=== PATIENT | male | born 1960 | race Caucasian/White ===

== ENCOUNTER 2019-11-03 17:15 | Inpatient (IN) | payer MEDICARE, MEDICAID, SELFPAY ==
--- NOTE | 2019-11-03 19:39 | CRLCT ---
Indication: Fall, syncope, history of CVA Comparison: None available. Technique: Multiple sequential axial images from the foramen magnum to the vertex were obtained without IV contrast. Findings: No evidence of mass effect, midline shift, or extra-axial fluid collection. No evidence of space-occupying lesion or intracranial hemorrhage. Intracranial vascular calcifications are seen. No evidence of an acute cortical-based area of infarction. Focal 10 mm area of ill-defined hypodensity in the posterior right frontal lobe near the central sulcus best seen on image 43, series 4 appears subacute to chronic without any mass effect. The ventricles and sulci are mildly prominent for patient age. Basal cisterns are patent. Visualized portions of the orbits, paranasal sinuses, and mastoid air cells are unremarkable. Debris within bilateral external artery canals presumably represents cerumen. Impression: No acute intracranial process. Please note that all CT scans at this facility use dose modulation, iterative reconstruction, and/or weight-based dosing when appropriate to reduce radiation dose to as low as reasonably achievable. Dictated by Osvaldo Jewell MD @ Nov 03 2019 7:25PM (Electronically Signed)
--- NOTE | 2019-11-03 19:58 | EDM.PDOC ---
ED HPI GENERAL MEDICAL PROBLEM - General Chief Complaint: Syncope Stated Complaint: MEDICAL [facility] Time Seen by Provider: 11/03/19 18:16 Source of Information: Reports: Patient, Old Records, RN Notes Reviewed History Limitations: Reports: No Limitations - History of Present Illness INITIAL COMMENTS - FREE TEXT/NARRATIVE: 59-year-old gentleman presents emergency department today via EMS services for increasing weakness. He has a known history of CVA last occurred September 23 was evaluated at [facility] the stroke was initially acute subacute unknown well time he also has extensive history of alcohol abuse and dependence. As well as poor healthcare compliance as well as medical compliance with medications. He states after he was discharged from the hospital he was at home he thought he was doing okay and then over the last 24 hours have progressively gotten weak he states he had a fall this morning feels like his legs just gave out he was able to get to the chair he said he had a couple of years thought about it for a while and then called the ambulance service in the afternoon instead of going to [facility] he requested to be transferred to [place]. - Related Data Allergies Allergy/AdvReac Type Severity Reaction Status Date / Time propofol Allergy Hypotension Verified 12/28/15 04:50 Home Meds: Home Meds . [Unable to Verify Home Med List] 11/03/19 [History] Past Medical History HEENT History: Reports: Impaired Vision Cardiovascular History: Reports: Afib (Paroxysmal), High Cholesterol, Hypertension Gastrointestinal History: Reports: Other (See Below) Other Gastrointestinal History: feeding tube in place placed after CVA with difficulty swallowing however no longer uses it Musculoskeletal History: Reports: Back Pain, Chronic, Fracture Neurological History: Reports: CVA (Right vertebral artery), Other (See Below) (Obstructive sleep apnea) Psychiatric History: Reports: Addiction, Anxiety, Depression Endocrine/Metabolic History: Reports: Obesity/BMI 30+ - Infectious Disease History Infectious Disease History: Reports: Chicken Pox - Past Surgical History Neurological Surgical History: Reports: Laminectomy, Spinal Fusion Social & Family History - Tobacco Use Smoking Status *Q: Current Every Day Smoker Years of Tobacco use: 50 Packs/Tins Daily: 1 - Caffeine Use Caffeine Use: Reports: Coffee - Alcohol Use Date of Last Drink: 11/03/19 Time of Last Drink: 10:00 - Recreational Drug Use Recreational Drug Use: No ED ROS GENERAL - Review of Systems Review Of Systems: See Below Constitutional: Reports: Weakness, Fatigue. Denies: Fever, Chills HEENT: Reports: No Symptoms Respiratory: Reports: No Symptoms Cardiovascular: Reports: No Symptoms GI/Abdominal: Reports: No Symptoms : Reports: No Symptoms Musculoskeletal: Reports: No Symptoms Skin: Reports: Wound (PEG tube in place) Neurological: Reports: Difficulty Walking, Weakness ED EXAM, NEURO - Physical Exam Exam: See Below Exam Limited By: No Limitations General Appearance: Alert, WD/WN, No Apparent Distress Eye Exam: Bilateral Eye: Normal Inspection, PERRL Throat/Mouth: No Airway Compromise Head Exam: Atraumatic, Normocephalic Neck: Normal Inspection, Supple, Non-Tender, Full Range of Motion Respiratory/Chest: No Respiratory Distress, Lungs Clear, Normal Breath Sounds, No Accessory Muscle Use, Chest Non-Tender Cardiovascular: Regular Rate, Rhythm, No Murmur GI/Abdominal: Soft, Non-Tender Neurological: Alert, No Motor/Sensory Deficits Course - Vital Signs Last Recorded V/S: Last Vital Signs Temp 96.5 F L 11/03/19 18:00 Pulse 78 11/03/19 20:26 Resp 16 11/03/19 18:00 BP 166/87 H 11/03/19 20:26 Pulse Ox 97 11/03/19 18:00 - Orders/Labs/Meds Orders: Active Orders 24 hr Category Date Time Status EKG Documentation Completion [RC] ASDIRECTED Care 11/03/19 18:53 Active UA W/MICROSCOPIC [URIN] Urgent Lab 11/03/19 20:49 Ordered EKG 12 Lead [EK] Stat Ther 11/03/19 18:53 Ordered Labs: Laboratory Tests 11/03/19 11/03/19 11/03/19 Range/Units 18:28 18:28 18:28 WBC 6.5 (4.5-11.0) K/uL RBC 5.17 (4.30-5.90) M/uL Hgb 16.4 H (12.0-15.0) g/dL Hct 48.9 (40.0-54.0) % MCV 95 (80-98) fL MCH 32 H (27-31) pg MCHC 34 (32-36) % Plt Count 99 L (150-400) K/uL Neut % (Auto) 49 (36-66) % Lymph % (Auto) 35 (24-44) % Christian % (Auto) 12 H (2-6) % Eos % (Auto) 3 (2-4) % Baso % (Auto) 1 (0-1) % PT (9.5-12.0) sec INR (0.80-1.20) Sodium 143 (140-148) mmol/L Potassium 3.9 (3.6-5.2) mmol/L Chloride 101 (100-108) mmol/L Carbon Dioxide 28 (21-32) mmol/L Anion Gap 14.5 H (5.0-14.0) mmol/L BUN 7 (7-18) mg/dL Creatinine 0.8 (0.8-1.3) mg/dL Est Cr Clr Drug Dosing 93.81 mL/min Estimated GFR (MDRD) > 60 (>60) Glucose 70 L (74-106) mg/dL Calcium 8.5 (8.5-10.1) mg/dL Troponin I (0.000-0.056) ng/mL Ethyl Alcohol 177 mg/dL 11/03/19 11/03/19 Range/Units 18:56 18:58 WBC (4.5-11.0) K/uL RBC (4.30-5.90) M/uL Hgb (12.0-15.0) g/dL Hct (40.0-54.0) % MCV (80-98) fL MCH (27-31) pg MCHC (32-36) % Plt Count (150-400) K/uL Neut % (Auto) (36-66) % Lymph % (Auto) (24-44) % Christian % (Auto) (2-6) % Eos % (Auto) (2-4) % Baso % (Auto) (0-1) % PT 10.3 (9.5-12.0) sec INR 0.94 (0.80-1.20) Sodium (140-148) mmol/L Potassium (3.6-5.2) mmol/L Chloride (100-108) mmol/L Carbon Dioxide (21-32) mmol/L Anion Gap (5.0-14.0) mmol/L BUN (7-18) mg/dL Creatinine (0.8-1.3) mg/dL Est Cr Clr Drug Dosing mL/min Estimated GFR (MDRD) (>60) Glucose (74-106) mg/dL Calcium (8.5-10.1) mg/dL Troponin I 0.024 (0.000-0.056) ng/mL Ethyl Alcohol mg/dL Departure - Departure Time of Disposition: 20:53 Disposition: Admitted As Inpatient 64 Condition: Poor Clinical Impression: Alcohol abuse, Weakness - Discharge Information Referrals: PCP,None [Primary Care Provider] - Forms: ED Department Discharge Sepsis Event Note (ED) - Evaluation Sepsis Screening Result: No Definite Risk - Focused Exam Vital Signs: Vital Signs Temp Pulse Resp BP Pulse Ox 11/03/19 20:26 78 166/87 H 11/03/19 20:04 76 151/77 H 11/03/19 18:37 84 161/87 H 11/03/19 18:00 96.5 F L 59 L 16 148/79 H 97 11/03/19 17:44 59 L 148/79 H 11/03/19 17:17 96.5 F L 76 16 153/78 H 97 - My Orders Last 24 Hours: My Active Orders 11/03/19 18:53 EKG Documentation Completion [RC] ASDIRECTED EKG 12 Lead [EK] Stat 11/03/19 20:49 UA W/MICROSCOPIC [URIN] Urgent - Assessment/Plan Last 24 Hours: My Active Orders 11/03/19 18:53 EKG Documentation Completion [RC] ASDIRECTED EKG 12 Lead [EK] Stat 11/03/19 20:49 UA W/MICROSCOPIC [URIN] Urgent Plan: Assessment Acuity = acute Site and laterality = weakness Etiology = unknown probably related to debilitated condition recent CVA and extensive alcohol abuse and dependence Manifestations = none Location of injury = Home Lab values = CBC unremarkable BMP unremarkable alcohol elevated 177 EKG demonstrates right bundle branch block initial troponin normal range 0.424 Plan Call discussed case with Dr. Mercer hospitalist on-call at [phone] he kindly agreed to come evaluate the patient in the emergency department for admission This note was dictated using nprogress voice recognition software please call with any questions on syntax or grammar.
[2019-11-03] MEDS ORDERED: Sodium Chloride 0.9% 10 ML Syringe FLUSH PRN (21:38)
--- NOTE | 2019-11-03 21:54 | PCM.HP.2 ---
H&P History of Present Illness - General Date of Service: 11/03/19 Admit Problem/Dx: Admission Diagnosis/Problem Admission Diagnosis/Problem Weakness Source of Information: Patient, Provider History Limitations: Reports: No Limitations - History of Present Illness Initial Comments - Free Text/Narative: CC: I'm so weak HPI: Don presents to the emergency room today with weakness. He reports that his legs gave out on him this morning and he fell down. He had to crawl over to the chair and spent the day in the chair. He had several beers throughout the day. He reports that he has had urgent stool that he has been unable to control and it has been liquid. This just started today. He reports that he has been having some urinary urgency and it has been passing in small quantities on its own. Appetite has been okay. He has been well enough to continue to smoke and drink alcohol. He has a mild cough with some sputum but does not feel short of breath. No chest pain or abdominal pain. No nausea. No fevers. He does report that he had a stroke just over a month ago but had been doing okay and had been independent at home. Things started suddenly today and he had been feeling well as of yesterday. No obvious sick contacts or travel. Work-up in the emergency room has been fairly unremarkable. The patient is quite weak. He is continuing to have loose and incontinent stools. No exciting labs other than a moderate CRP elevation. C. difficile and chest x-ray are pending. Repeat head CT unremarkable. He will be admitted for observation and expedited work-up. - Related Data Allergies/Adverse Reactions: Allergies Allergy/AdvReac Type Severity Reaction Status Date / Time propofol Allergy Hypotension Verified 12/28/15 04:50 Home Medications: Home Meds . [Unable to Verify Home Med List] 11/03/19 [History] Past Medical History HEENT History: Reports: Impaired Vision Cardiovascular History: Reports: Afib (Paroxysmal), High Cholesterol, Hypertension Gastrointestinal History: Reports: Other (See Below) Other Gastrointestinal History: feeding tube in place placed after CVA with difficulty swallowing however no longer uses it Musculoskeletal History: Reports: Back Pain, Chronic, Fracture Neurological History: Reports: CVA (Right vertebral artery), Other (See Below) (Obstructive sleep apnea) Psychiatric History: Reports: Addiction, Anxiety, Depression Endocrine/Metabolic History: Reports: Obesity/BMI 30+ - Infectious Disease History Infectious Disease History: Reports: Chicken Pox - Past Surgical History Neurological Surgical History: Reports: Laminectomy, Spinal Fusion Social & Family History - Family History Cardiac: Denies: CAD - Tobacco Use Smoking Status *Q: Current Every Day Smoker Years of Tobacco use: 50 Packs/Tins Daily: 1 - Caffeine Use Caffeine Use: Reports: Coffee - Alcohol Use Date of Last Drink: 11/03/19 Time of Last Drink: 10:00 - Recreational Drug Use Recreational Drug Use: No H&P Review of Systems - Review of Systems: Review Of Systems: See Below Free Text/Narrative: A complete 12 point review of systems was obtained. Pertinent positives and negatives are noted in the history of present illness. All other systems were reviewed and were negative except as noted. Exam - Exam Exam: See Below - Vital Signs Vital Signs: Last Vital Signs Temp 35.8 C L 11/03/19 18:00 Pulse 84 11/03/19 21:00 Resp 16 11/03/19 18:00 BP 158/70 H 11/03/19 21:00 Pulse Ox 97 11/03/19 18:00 Weight: 104.326 kg - Exam Quality Assessment: No: Supplemental Oxygen General: Alert, Oriented, Cooperative. No: Mild Distress HEENT: No: Conjunctiva Clear (injected), Mucosa Moist & [place] (dry), Scleral Icterus Neck: Supple, Trachea Midline Lungs: Normal Respiratory Effort, Crackles (left lung base) Cardiovascular: Regular Rate, Regular Rhythm. No: Systolic Murmur GI/Abdominal Exam: Normal Bowel Sounds, Soft, Non-Tender, No Distention Extremities: No Pedal Edema. No: Increased Warmth Peripheral Pulses: 2+: Dorsalis Pedis (L), Dorsalis Pedis (R) Skin: Warm, Dry Neuro Extensive - Mental Status: Alert, Oriented x3, Nl Response to Commands Neuro Extensive - Motor, Sensory, Reflexes: No: Dysarthria, Abnormal Motor, Tremor Psychiatric: Alert, Normal Affect - Patient Data Lab Results Last 24 hrs: Laboratory Results - last 24 hr 11/03/19 11/03/19 11/03/19 Range/Units 18:28 18:28 18:28 WBC 6.5 (4.5-11.0) K/uL RBC 5.17 (4.30-5.90) M/uL Hgb 16.4 H (12.0-15.0) g/dL Hct 48.9 (40.0-54.0) % MCV 95 (80-98) fL MCH 32 H (27-31) pg MCHC 34 (32-36) % Plt Count 99 L (150-400) K/uL Neut % (Auto) 49 (36-66) % Lymph % (Auto) 35 (24-44) % [place] % (Auto) 12 H (2-6) % Eos % (Auto) 3 (2-4) % Baso % (Auto) 1 (0-1) % PT (9.5-12.0) sec INR (0.80-1.20) Sodium 143 (140-148) mmol/L Potassium 3.9 (3.6-5.2) mmol/L Chloride 101 (100-108) mmol/L Carbon Dioxide 28 (21-32) mmol/L Anion Gap 14.5 H (5.0-14.0) mmol/L BUN 7 (7-18) mg/dL Creatinine 0.8 (0.8-1.3) mg/dL Est Cr Clr Drug Dosing 93.81 mL/min Estimated GFR (MDRD) > 60 (>60) Glucose 70 L (74-106) mg/dL Calcium 8.5 (8.5-10.1) mg/dL Troponin I (0.000-0.056) ng/mL Ethyl Alcohol 177 mg/dL 11/03/19 11/03/19 Range/Units 18:56 18:58 WBC (4.5-11.0) K/uL RBC (4.30-5.90) M/uL Hgb (12.0-15.0) g/dL Hct (40.0-54.0) % MCV (80-98) fL MCH (27-31) pg MCHC (32-36) % Plt Count (150-400) K/uL Neut % (Auto) (36-66) % Lymph % (Auto) (24-44) % [place] % (Auto) (2-6) % Eos % (Auto) (2-4) % Baso % (Auto) (0-1) % PT 10.3 (9.5-12.0) sec INR 0.94 (0.80-1.20) Sodium (140-148) mmol/L Potassium (3.6-5.2) mmol/L Chloride (100-108) mmol/L Carbon Dioxide (21-32) mmol/L Anion Gap (5.0-14.0) mmol/L BUN (7-18) mg/dL Creatinine (0.8-1.3) mg/dL Est Cr Clr Drug Dosing mL/min Estimated GFR (MDRD) (>60) Glucose (74-106) mg/dL Calcium (8.5-10.1) mg/dL Troponin I 0.024 (0.000-0.056) ng/mL Ethyl Alcohol mg/dL Result Diagrams: 11/03/19 18:28 11/03/19 18:28 Imaging Impressions Last 24 hrs: Head CT-images personally reviewed-hypodense area in posterior right frontal lobe from subacute/chronic infarct. No acute findings. No bleed or mass. EKG INTERPRETATION EKG Date: 11/03/19 Rhythm: NSR Rate (Beats/Min): 75 [place]: LAD-Left [place] Deviation P-Wave: Present QRS: Other (RBBB and LAFB) ST-T: Normal QT: Normal Comparison: NA - No Prior EKG Sepsis Event Note - Evaluation Sepsis Screening Result: No Definite Risk - Focused Exam Vital Signs: Vital Signs Temp Pulse Resp BP Pulse Ox 11/03/19 21:00 84 158/70 H 11/03/19 20:26 78 166/87 H 11/03/19 20:04 76 151/77 H 11/03/19 18:37 84 161/87 H 11/03/19 18:00 35.8 C L 59 L 16 148/79 H 97 11/03/19 17:44 59 L 148/79 H 11/03/19 17:17 35.8 C L 76 16 153/78 H 97 Date Exam was Performed: 11/03/19 Time Exam was Performed: 22:04 *Q Meaningful Use (ADM) - VTE Risk Assess *Q Each Risk Factor Represents 1 Point: Obesity ( BMI > 25 kg/m2) Total Score 1 Point Risk Factors: 1 Each Risk Factor Represents 2 Points: Age 60 - 74 Years Total Score 2 Point Risk Factors: 2 Each Risk Factor Represents 3 Points: None Total Score 3 Point Risk Factors: 0 Each Risk Factor Represents 5 Points: None Total Score 5 Point Risk Factors: 0 Venous Thromboembolism Risk Factor Score *Q: 3 - Problem List (1) Weakness SNOMED Code(s): 56949042 ICD Code: R53.1 - WEAKNESS Status: Acute Current Visit: Yes (2) Diarrhea SNOMED Code(s): 18745748 ICD Code: R19.7 - DIARRHEA, UNSPECIFIED Status: Acute Current Visit: Yes Qualifiers: Diarrhea type: unspecified type Qualified Code(s): R19.7 - Diarrhea, unspecified (3) CVD (cerebrovascular disease) SNOMED Code(s): 03630043 ICD Code: I67.9 - CEREBROVASCULAR DISEASE, UNSPECIFIED Status: Chronic Current Visit: Yes (4) Tobacco dependence SNOMED Code(s): 01168452 ICD Code: F17.200 - NICOTINE DEPENDENCE, UNSPECIFIED, UNCOMPLICATED Status: Chronic Current Visit: Yes (5) Alcohol dependence SNOMED Code(s): 64691364 ICD Code: F10.20 - ALCOHOL DEPENDENCE, UNCOMPLICATED Status: Chronic Current Visit: Yes Qualifiers: Substance use status: with intoxication Complication of substance-induced condition: uncomplicated Qualified Code(s): F10.220 - Alcohol dependence with intoxication, uncomplicated Problem List Initiated/Reviewed/Updated: Yes Orders Last 24hrs: Active Orders 24 hr Category Date Time Status Patient Status Manage Transfer [TRANSFER] Routine ADT 11/03/19 21:41 Ordered EKG Documentation Completion [RC] ASDIRECTED Care 11/03/19 18:53 Active Peripheral IV Care [RC] . DIRECTED Care 11/03/19 21:39 Active CXR [Chest 1V Frontal] [CR] Stat Exams 11/03/19 21:37 Ordered C-REACTIVE PROTEIN [CHEM] Stat Lab 11/03/19 21:37 Ordered CLOS DIFFICILE PCR W/REFLEX [RM] Routine Lab 11/03/19 21:37 Ordered UA W/MICROSCOPIC [URIN] Urgent Lab 11/03/19 20:49 Ordered NS + KCl 20mEq/L [Normal Saline with 20 mEq KCl] 1,000 Med 11/03/19 21:45 Active ml IV ASDIRECTED Sodium Chloride 0.9% [Saline Flush] Med 11/03/19 21:38 Active 10 ml FLUSH ASDIRECTED PRN Peripheral IV Insertion Adult [OM.PC] Routine Oth 11/03/19 21:38 Ordered Resuscitation Status Routine Resus Stat 07/30/20 21:42 Ordered EKG 12 Lead [EK] Stat Ther 11/03/19 18:53 Ordered Medication Orders Potassium Chloride/Sodium Chloride (Normal Saline With 20 Meq Kcl) 1,000 mls @ 125 mls/hr IV ASDIRECTED JESENIA Sodium Chloride (Saline Flush) 10 ml FLUSH ASDIRECTED PRN PRN Reason: Keep Vein Open Assessment/Plan Comment:: ASSESSMENT AND PLAN - Acute generalized weakness-head CT did not show evidence for acute stroke. Examination is relatively benign. I am suspicious that he may have an infection though none has been found as of yet. Differential could include C. difficile infection versus left lung pneumonia versus urinary tract infection. White count is normal and he is not febrile. He has not been taking any medications. -Follow-up testing for C. difficile and chest x-ray -IV fluids -Probiotic -Physical therapy in the morning Recent CVA-initially had difficulty with dysphasia but now this has resolved. He has some left-sided numbness left but no significant strength deficits. He has not been taking any of his medications. I plan to restart them tomorrow once we have verified what he supposed to be taking. Tobacco dependence in early remission-recently quit, hopes to continue cessation. Alcohol dependence-history of heavier drinking, has cut down to a sixpack of beer per day since his stroke. No strong concerns for alcohol withdrawal at this time. Maintenance issues - - DVT prophylaxis -enoxaparin - GI prophylaxis -not indicated - Nutrition -regular - Gauthier catheter -not indicated CODE STATUS -full code Admission justification -patient will be referred observation status for expedited work-up and symptomatic management Disposition -home versus subacute rehab Primary care physician -no primary care Yao Mercer M.D. - Mortality Measure Prognosis:: Good
[2019-11-03] MEDS ORDERED: Enoxaparin 40 MG/0.4 ML Syringe SUBCUT SCH (22:00)
[2019-11-03] MEDS ORDERED: Acetaminophen 325 MG Tab PO PRN (22:12)
[2019-11-03] MEDS ORDERED: Magnesium Hydroxide 400 MG/5 ML Susp 30 ML Cup PO PRN (22:12)
[2019-11-03] MEDS ORDERED: Albuterol 0.083% 2.5 MG/3 ML Neb Soln NEB PRN (22:12)
[2019-11-03] MEDS ORDERED: Ondansetron 4 MG Tab.DIS PO PRN (22:12)
[2019-11-03] MEDS ORDERED: Dimethicone 20%/Zinc Oxide 25% 56 GM Spray Bottle TOP PRN (22:12)
[2019-11-03] MEDS ORDERED: Ondansetron 4 MG/2 ML SDV IV PRN (22:12)
[2019-11-03] MEDS ORDERED: Nystatin Topical Powder 15 GM Bottle TOP SCH (22:45)
[2019-11-03] MEDS: Nicotine 21 MG/24 Hr Patch TRDERM PRN (23:12)
[2019-11-03] MEDS: LORazepam 2 MG/ML SDV IVPUSH PRN (23:14)
[2019-11-03] MEDS: NS + KCl 20mEq/L 1,000 ML IV SCH (23:15)
[2019-11-04] MEDS: LORazepam 2 MG/ML SDV IVPUSH PRN ×3 (04:21→21:39)
[2019-11-04] MEDS: NS + KCl 20mEq/L 1,000 ML IV SCH ×2 (07:51→20:22)
[2019-11-04] MEDS: Lactobacillus Rhamnosus GG (Probiotic) Cap PO SCH ×2 (08:56→21:23)
[2019-11-04] MEDS: Nystatin Topical Powder 15 GM Bottle TOP SCH ×2 (08:56→21:24)
--- NOTE | 2019-11-04 09:04 | CR ---
CHEST: Portable 11/03/2019 at 1004 CLINICAL HISTORY:Cough COMPARISON:None FINDINGS: The heart size, pulmonary vascularity and hilar structures are normal. No infiltrate effusion or pneumothorax is seen. IMPRESSION: No acute cardiopulmonary process.
[2019-11-04] MEDS ORDERED: Potassium Chloride 20 MEQ Tab.ER PO ONE (09:15)
--- NOTE | 2019-11-04 09:41 | PCM.PN ---
- General Info Date of Service: 11/04/19 Subjective Update: No acute events overnight. Patient continues to be weak but thinks he is doing a little better. He does not report cough or shortness of breath but nursing reports that he has been coughing quite regularly. Respiratory sample did reveal some gram-positive cocci on Gram stain. He has not been hypoxic. He continues to have loose stools but C. difficile was negative. He does not report abdominal pain but is tender with examination. Labs are stable. Functional Status: Reports: Pain Controlled - Review of Systems General: Denies: Fever Gastrointestinal: Reports: Abdominal Pain, Diarrhea - Patient Data Vitals - Most Recent: Last Vital Signs Temp 35.8 C L 11/04/19 06:54 Pulse 99 11/04/19 06:54 Resp 16 11/04/19 06:54 BP 166/86 H 11/04/19 06:54 Pulse Ox 97 11/04/19 06:54 Weight - Most Recent: 104.326 kg I&O - Last 24 Hours: Intake & Output 11/03/19 11/04/19 11/04/19 22:59 06:59 14:59 Intake Total 745 Output Total 850 Balance -105 Lab Results Last 24 Hours: Laboratory Results - last 24 hr 11/03/19 11/03/19 11/03/19 Range/Units 18:28 18:28 18:28 WBC 6.5 (4.5-11.0) K/uL RBC 5.17 (4.30-5.90) M/uL Hgb 16.4 H (12.0-15.0) g/dL Hct 48.9 (40.0-54.0) % MCV 95 (80-98) fL MCH 32 H (27-31) pg MCHC 34 (32-36) % Plt Count 99 L (150-400) K/uL Neut % (Auto) 49 (36-66) % Lymph % (Auto) 35 (24-44) % [place] % (Auto) 12 H (2-6) % Eos % (Auto) 3 (2-4) % Baso % (Auto) 1 (0-1) % PT (9.5-12.0) sec INR (0.80-1.20) Sodium 143 (140-148) mmol/L Potassium 3.9 (3.6-5.2) mmol/L Chloride 101 (100-108) mmol/L Carbon Dioxide 28 (21-32) mmol/L Anion Gap 14.5 H (5.0-14.0) mmol/L BUN 7 (7-18) mg/dL Creatinine 0.8 (0.8-1.3) mg/dL Est Cr Clr Drug Dosing 93.81 mL/min Estimated GFR (MDRD) > 60 (>60) Glucose 70 L (74-106) mg/dL Calcium 8.5 (8.5-10.1) mg/dL Magnesium (1.8-2.4) mg/dL Total Bilirubin (0.2-1.0) mg/dL Direct Bilirubin (0.0-0.2) mg/dL Indirect Bilirubin AST (15-37) U/L ALT (12-78) U/L Alkaline Phosphatase (46-116) U/L Troponin I (0.000-0.056) ng/mL C-Reactive Protein (0.0-0.3) mg/dL Total Protein (6.4-8.2) g/dL Albumin (3.4-5.0) g/dL Globulin (2.3-3.5) g/dL Albumin/Globulin Ratio (1.2-2.2) Urine Color (YELLOW) Urine Appearance (CLEAR) Urine pH (5.0-8.0) Ur Specific [place] (1.008-1.030) Urine Protein (NEGATIVE) mg/dL Urine Glucose (UA) (NEGATIVE) mg/dL Urine Ketones (NEGATIVE) mg/dL Urine Occult Blood (NEGATIVE) Urine Nitrite (NEGATIVE) Urine Bilirubin (NEGATIVE) Urine Urobilinogen (0.2-1.0) EU/dL Ur Leukocyte Esterase (NEGATIVE) Urine RBC (0-5) Urine WBC (0-5) Ur Epithelial Cells Amorphous Sediment Urine Bacteria Urine Mucus Ethyl Alcohol 177 mg/dL 11/03/19 11/03/19 11/03/19 Range/Units 18:28 18:56 18:58 WBC (4.5-11.0) K/uL RBC (4.30-5.90) M/uL Hgb (12.0-15.0) g/dL Hct (40.0-54.0) % MCV (80-98) fL MCH (27-31) pg MCHC (32-36) % Plt Count (150-400) K/uL Neut % (Auto) (36-66) % Lymph % (Auto) (24-44) % [place] % (Auto) (2-6) % Eos % (Auto) (2-4) % Baso % (Auto) (0-1) % PT 10.3 (9.5-12.0) sec INR 0.94 (0.80-1.20) Sodium (140-148) mmol/L Potassium (3.6-5.2) mmol/L Chloride (100-108) mmol/L Carbon Dioxide (21-32) mmol/L Anion Gap (5.0-14.0) mmol/L BUN (7-18) mg/dL Creatinine (0.8-1.3) mg/dL Est Cr Clr Drug Dosing mL/min Estimated GFR (MDRD) (>60) Glucose (74-106) mg/dL Calcium (8.5-10.1) mg/dL Magnesium (1.8-2.4) mg/dL Total Bilirubin (0.2-1.0) mg/dL Direct Bilirubin (0.0-0.2) mg/dL Indirect Bilirubin AST (15-37) U/L ALT (12-78) U/L Alkaline Phosphatase (46-116) U/L Troponin I 0.024 (0.000-0.056) ng/mL C-Reactive Protein 1.33 H (0.0-0.3) mg/dL Total Protein (6.4-8.2) g/dL Albumin (3.4-5.0) g/dL Globulin (2.3-3.5) g/dL Albumin/Globulin Ratio (1.2-2.2) Urine Color (YELLOW) Urine Appearance (CLEAR) Urine pH (5.0-8.0) Ur Specific [place] (1.008-1.030) Urine Protein (NEGATIVE) mg/dL Urine Glucose (UA) (NEGATIVE) mg/dL Urine Ketones (NEGATIVE) mg/dL Urine Occult Blood (NEGATIVE) Urine Nitrite (NEGATIVE) Urine Bilirubin (NEGATIVE) Urine Urobilinogen (0.2-1.0) EU/dL Ur Leukocyte Esterase (NEGATIVE) Urine RBC (0-5) Urine WBC (0-5) Ur Epithelial Cells Amorphous Sediment Urine Bacteria Urine Mucus Ethyl Alcohol mg/dL 11/04/19 11/04/19 11/04/19 Range/Units 01:30 04:33 04:33 WBC 6.6 (4.5-11.0) K/uL RBC 4.89 (4.30-5.90) M/uL Hgb 15.5 H (12.0-15.0) g/dL Hct 45.3 (40.0-54.0) % MCV 93 (80-98) fL MCH 32 H (27-31) pg MCHC 34 (32-36) % Plt Count 95 L (150-400) K/uL Neut % (Auto) (36-66) % Lymph % (Auto) (24-44) % [place] % (Auto) (2-6) % Eos % (Auto) (2-4) % Baso % (Auto) (0-1) % PT (9.5-12.0) sec INR (0.80-1.20) Sodium 140 (140-148) mmol/L Potassium 3.6 (3.6-5.2) mmol/L Chloride 104 (100-108) mmol/L Carbon Dioxide 25 (21-32) mmol/L Anion Gap 10.6 (5.0-14.0) mmol/L BUN 5 L (7-18) mg/dL Creatinine 0.6 L (0.8-1.3) mg/dL Est Cr Clr Drug Dosing 125.08 mL/min Estimated GFR (MDRD) > 60 (>60) Glucose 75 (74-106) mg/dL Calcium 8.4 L (8.5-10.1) mg/dL Magnesium 1.5 L (1.8-2.4) mg/dL Total Bilirubin (0.2-1.0) mg/dL Direct Bilirubin (0.0-0.2) mg/dL Indirect Bilirubin AST (15-37) U/L ALT (12-78) U/L Alkaline Phosphatase (46-116) U/L Troponin I (0.000-0.056) ng/mL C-Reactive Protein (0.0-0.3) mg/dL Total Protein (6.4-8.2) g/dL Albumin (3.4-5.0) g/dL Globulin (2.3-3.5) g/dL Albumin/Globulin Ratio (1.2-2.2) Urine Color Yellow (YELLOW) Urine Appearance Clear (CLEAR) Urine pH 7.0 (5.0-8.0) Ur Specific [place] 1.025 (1.008-1.030) Urine Protein Trace H (NEGATIVE) mg/dL Urine Glucose (UA) Negative (NEGATIVE) mg/dL Urine Ketones 80 H (NEGATIVE) mg/dL Urine Occult Blood Trace-intact H (NEGATIVE) Urine Nitrite Negative (NEGATIVE) Urine Bilirubin Small H (NEGATIVE) Urine Urobilinogen 4.0 H (0.2-1.0) EU/dL Ur Leukocyte Esterase Negative (NEGATIVE) Urine RBC 5-10 H (0-5) Urine WBC 0-5 (0-5) Ur Epithelial Cells Rare Amorphous Sediment Not seen Urine Bacteria Rare Urine Mucus Moderate Ethyl Alcohol mg/dL 11/04/19 Range/Units 09:01 WBC (4.5-11.0) K/uL RBC (4.30-5.90) M/uL Hgb (12.0-15.0) g/dL Hct (40.0-54.0) % MCV (80-98) fL MCH (27-31) pg MCHC (32-36) % Plt Count (150-400) K/uL Neut % (Auto) (36-66) % Lymph % (Auto) (24-44) % [place] % (Auto) (2-6) % Eos % (Auto) (2-4) % Baso % (Auto) (0-1) % PT (9.5-12.0) sec INR (0.80-1.20) Sodium (140-148) mmol/L Potassium (3.6-5.2) mmol/L Chloride (100-108) mmol/L Carbon Dioxide (21-32) mmol/L Anion Gap (5.0-14.0) mmol/L BUN (7-18) mg/dL Creatinine (0.8-1.3) mg/dL Est Cr Clr Drug Dosing mL/min Estimated GFR (MDRD) (>60) Glucose (74-106) mg/dL Calcium (8.5-10.1) mg/dL Magnesium (1.8-2.4) mg/dL Total Bilirubin 1.2 H (0.2-1.0) mg/dL Direct Bilirubin 0.32 H (0.0-0.2) mg/dL Indirect Bilirubin 0.88 AST 125 H (15-37) U/L ALT 138 H (12-78) U/L Alkaline Phosphatase 110 (46-116) U/L Troponin I (0.000-0.056) ng/mL C-Reactive Protein (0.0-0.3) mg/dL Total Protein 6.2 L (6.4-8.2) g/dL Albumin 3.2 L (3.4-5.0) g/dL Globulin 3.0 (2.3-3.5) g/dL Albumin/Globulin Ratio 1.1 L (1.2-2.2) Urine Color (YELLOW) Urine Appearance (CLEAR) Urine pH (5.0-8.0) Ur Specific [place] (1.008-1.030) Urine Protein (NEGATIVE) mg/dL Urine Glucose (UA) (NEGATIVE) mg/dL Urine Ketones (NEGATIVE) mg/dL Urine Occult Blood (NEGATIVE) Urine Nitrite (NEGATIVE) Urine Bilirubin (NEGATIVE) Urine Urobilinogen (0.2-1.0) EU/dL Ur Leukocyte Esterase (NEGATIVE) Urine RBC (0-5) Urine WBC (0-5) Ur Epithelial Cells Amorphous Sediment Urine Bacteria Urine Mucus Ethyl Alcohol mg/dL Nils Results Last 24 Hours: Microbiology 11/03/19 01:41 Gram Stain - Final Sputum - Expectorated 11/03/19 21:55 Clostridioides difficile (PCR) - Final Stool / Feces - Stool, Liquid Med Orders - Current: Current Medications Acetaminophen (Tylenol) 650 mg PO Q4H PRN PRN Reason: Pain (Mild 1-3)/fever Albuterol (Proventil Neb Soln) 2.5 mg NEB Q4H PRN PRN Reason: Shortness Of Breath/wheezing Last Admin: 11/03/19 23:42 Dose: 2.5 mg Documented by: Dimethicone/Zinc Oxide (Rash Relief-Zinc Oxide [place]) 0 gm TOP Q2H PRN PRN Reason: Rash Last Admin: 11/03/19 23:14 Dose: 1 spray Documented by: Enoxaparin Sodium (Lovenox) 40 mg SUBCUT Q24H JESENIA Last Admin: 11/03/19 23:13 Dose: 40 mg Documented by: Potassium Chloride/Sodium Chloride (Normal Saline With 20 Meq Kcl) 1,000 mls @ 125 mls/hr IV ASDIRECTED [facility] Last Admin: 11/04/19 07:51 Dose: 125 mls/hr Documented by: Magnesium Sulfate 2 gm/ Premix 50 mls @ 25 mls/hr IV Q6H [facility] Stop: 11/04/19 17:29 Lactobacillus Rhamnosus (Culturelle) 1 cap PO BID [facility] Last Admin: 11/04/19 08:56 Dose: 1 cap Documented by: Lorazepam (Ativan) 0.5 mg IVPUSH Q4H PRN PRN Reason: Nausea/Vomiting Last Admin: 11/04/19 04:21 Dose: 0.5 mg Documented by: Magnesium Hydroxide (Milk Of Magnesia) 30 ml PO Q12H PRN PRN Reason: Constipation Nicotine (Habitrol) 21 mg TRDERM DAILY PRN PRN Reason: nicotine craving Last Admin: 11/03/19 23:12 Dose: 21 mg Documented by: Nystatin (Nystop) 0 gm TOP BID [facility] Last Admin: 11/04/19 08:56 Dose: 1 applic Documented by: Ondansetron HCl (Zofran) 4 mg IV Q6H PRN PRN Reason: Nausea/Vomiting Ondansetron HCl (Zofran Odt) 4 mg PO Q6H PRN PRN Reason: Nausea able to take PO Senna/Docusate Sodium (Senna Plus) 1 tab PO BID PRN PRN Reason: Constipation Sodium Chloride (Saline Flush) 10 ml FLUSH ASDIRECTED PRN PRN Reason: Keep Vein Open Discontinued Medications Nystatin (Nystop) 1 gm TOP BID [facility] Last Admin: 11/03/19 23:13 Dose: 1 applic Documented by: Potassium Chloride (Klor-Con M20) 40 meq PO ONETIME ONE Stop: 11/04/19 09:16 - Exam Quality Assessment: No: Supplemental Oxygen General: Alert, Oriented, Cooperative, No Acute Distress Lungs: Clear to Auscultation, Normal Respiratory Effort Cardiovascular: Regular Rate, Regular Rhythm GI/Abdominal Exam: Soft, No Distention, Tender (RUQ) Extremities: No Pedal Edema. No: Increased Warmth Skin: Warm, Dry Psy/Mental Status: Alert, Normal Affect Sepsis Event Note - Evaluation Sepsis Screening Result: No Definite Risk - Focused Exam Vital Signs: Vital Signs Temp Pulse Resp BP Pulse Ox 11/04/19 06:54 35.8 C L 99 16 166/86 H 97 11/04/19 04:20 36.5 C 90 18 161/76 H 91 L 11/04/19 00:58 36.5 C 101 H 18 151/72 H 93 L 11/03/19 23:04 37.7 C 98 18 154/89 H 95 Date Exam was Performed: 11/04/19 Time Exam was Performed: 10:06 - Problem List & Annotations (1) Weakness SNOMED Code(s): 66143109 Code(s): R53.1 - WEAKNESS Status: Acute Current Visit: Yes (2) Diarrhea SNOMED Code(s): 06904442 Code(s): R19.7 - DIARRHEA, UNSPECIFIED Status: Acute Current Visit: Yes Qualifiers: Diarrhea type: unspecified type Qualified Code(s): R19.7 - Diarrhea, unspecified (3) CVD (cerebrovascular disease) SNOMED Code(s): 06725048 Code(s): I67.9 - CEREBROVASCULAR DISEASE, UNSPECIFIED Status: Chronic Current Visit: Yes (4) Tobacco dependence SNOMED Code(s): 79889064 Code(s): F17.200 - NICOTINE DEPENDENCE, UNSPECIFIED, UNCOMPLICATED Status: Chronic Current Visit: Yes (5) Alcohol dependence SNOMED Code(s): 83687013 Code(s): F10.20 - ALCOHOL DEPENDENCE, UNCOMPLICATED Status: Chronic Current Visit: Yes Qualifiers: Substance use status: with intoxication Complication of substance-induced condition: uncomplicated Qualified Code(s): F10.220 - Alcohol dependence with intoxication, uncomplicated - Problem List Review Problem List Initiated/Reviewed/Updated: Yes - My Orders Last 24 Hours: My Active Orders 11/03/19 Dinner Regular Diet [DIET] 11/03/19 21:38 Sodium Chloride 0.9% [Saline Flush] 10 ml FLUSH ASDIRECTED PRN Peripheral IV Insertion Adult [OM.PC] Routine 11/03/19 21:39 Peripheral IV Care [RC] . DIRECTED 11/03/19 21:42 Resuscitation Status Routine 11/03/19 21:45 NS + KCl 20mEq/L [Normal Saline with 20 mEq KCl] 1,000 ml IV ASDIRECTED 11/03/19 22:00 Enoxaparin [Lovenox] 40 mg SUBCUT Q24H 11/03/19 22:12 Acetaminophen [Tylenol] 650 mg PO Q4H PRN Albuterol [Proventil Neb Soln] 2.5 mg NEB Q4H PRN Dimethicone/Zinc Oxide [Rash Relief-Zinc Oxide [place]] 0 gm TOP Q2H PRN Docusate Sodium/Sennosides [Senna Plus] 1 tab PO BID PRN LORazepam [Ativan] 0.5 mg IVPUSH Q4H PRN Magnesium Hydroxide [Milk of Magnesia] 30 ml PO Q12H PRN Nicotine [Habitrol] 21 mg TRDERM DAILY PRN Ondansetron [Zofran ODT] 4 mg PO Q6H PRN Ondansetron [Zofran] 4 mg IV Q6H PRN 11/03/19 22:12 Patient Status [ADT] Routine Intake and Output [RC] QSHIFT Notify Provider Vital Signs [RC] ASDIRECTED Oxygen Therapy [RC] PRN RT Aerosol Therapy [RC] ASDIRECTED Up With Assistance [RC] ASDIRECTED Vital Signs [RC] Q4H 11/04/19 07:00 PT Evaluation and Treatment [CONS] Routine 11/04/19 09:00 Lactobacillus Rhamnosus GG [Culturelle] 1 cap PO BID Nystatin [Nystop] 0 gm TOP BID 11/04/19 09:30 Magnesium Sulfate/Water [Magnesium Sulfate in Water Premix] 2 gm Premix Bag 1 bag IV Q6H 11/04/19 09:39 Abdomen Pelvis w Cont [CT] Routine CORONAVIRUS COVID-19, MECHE Routine 11/05/19 05:00 CBC W/O DIFF,HEMOGRAM [HEME] Timed (1) COMPREHENSIVE METABOLIC PN,CMP [CHEM] Timed - Plan Plan:: ASSESSMENT AND PLAN - Acute generalized weakness-head CT did not show evidence for acute stroke. Examination still benign. Still suspicious for infection. -IV fluids -Probiotic -Physical therapy in the morning Acute bronchitis, suspected-significant cough with abnormal Gram stain from respiratory sample. He is not hypoxic. He is a smoker. Planning to treat at least until his respiratory culture is final with no other obvious source for infection identified yet. -Doxycycline -COVID19 testing -Follow-up sputum culture Right upper quadrant pain and diarrhea-mild elevation of bilirubin, AST and ALT. Could be fatty liver from his drinking but with the significant diarrhea I am going to image the abdomen for further evaluation. -CT scan of the abdomen and pelvis Recent CVA-minimal deficits. Still need to figure out what medications he is supposed to be taking get those restarted. Tobacco dependence in early remission-recently quit, hopes to continue cessation. Alcohol dependence-history of heavier drinking, has cut down to a sixpack of beer per day since his stroke. No evidence of alcohol withdrawal thus far. Maintenance issues - - DVT prophylaxis -enoxaparin - GI prophylaxis -not indicated - Nutrition -regular Admission justification -patient will be referred observation status for expedited work-up and symptomatic management Disposition -home versus subacute rehab Primary care physician -Franny Mercer M.D.
[2019-11-04] MEDS: Magnesium Sulfate/Water 2 GM in Premix Bag 1 BAG IV SCH ×2 (09:59→15:11)
[2019-11-04] MEDS ORDERED: Sodium Chloride 0.9% 10 ML Syringe FLUSH ONE (10:27)
[2019-11-04] MEDS ORDERED: Iopamidol 612 MG/ML 500 ML Multipack Bottle IV ONE (10:27)
[2019-11-04] MEDS ORDERED: Sodium Chloride 0.9% 100 ML IV SCH (10:30)
[2019-11-04] MEDS: Doxycycline 100 MG Cap PO SCH ×2 (11:32→21:25)
--- NOTE | 2019-11-04 14:26 | CT ---
Abdomen Pelvis w Cont CLINICAL HISTORY: Right upper quadrant pain, diarrhea COMPARISON: None. TECHNIQUE: Axial tomographic images are obtained from the dome of the diaphragm to the pubic symphysis without IV contrast enhancement. No oral contrast was used. Auto dosage reduction and iterative reconstruction techniques employed. FINDINGS: The lung bases are clear. The liver shows diffuse fatty infiltration. The gallbladder has a normal contour. There is a gastrostomy tube in the stomach. The spleen has a normal size and shape. The pancreas shows no mass or inflammatory change. The adrenal glands appear normal bilaterally. The kidneys show no mass stones or hydronephrosis. Ureters have a normal course and caliber. The aorta contains atheromatous plaque without aneurysm. There is some plaque at the origin of the left renal artery which may cause mild stenosis.. There is no suspicious retroperitoneal adenopathy. There is some generalized bladder wall thickening. There is moderate prostatic enlargement. Small intestinal configuration is nonacute. The appendix has a normal contour. There is a small left inguinal hernia containing fat. IMPRESSION: Moderate fatty infiltration the liver Gastrostomy tube in the stomach
[2019-11-04] MEDS ORDERED: rOPINIRole 0.5 MG Tab PO SCH (21:00)
[2019-11-04] MEDS: Apixaban 5 MG Tab PO SCH (21:23)
[2019-11-04] MEDS: atorvaSTATin 20 MG Tab PO SCH (21:24)
[2019-11-04] MEDS: Nicotine 21 MG/24 Hr Patch TRDERM PRN (21:44)
[2019-11-05] MEDS: LORazepam 2 MG/ML SDV IVPUSH PRN (04:16)
[2019-11-05] MEDS: NS + KCl 20mEq/L 1,000 ML IV SCH (04:17)
--- NOTE | 2019-11-05 09:34 | PCM.PN ---
- General Info Date of Service: 11/05/19 Subjective Update: No acute events overnight. Patient had some unusual dreams and did not sleep well. Cough is better but not resolved. No urgent diarrhea since yesterday. Appetite good but has to chew his food thoroughly and slowly. Strength is getting better and he is using the walker fairly efficiently. Labs are stable. Respiratory culture with normal yvon. Mild but improved right upper quadrant pain. Functional Status: Reports: Pain Controlled, Tolerating Diet - Review of Systems General: Denies: Fever Pulmonary: Reports: Cough - Patient Data Vitals - Most Recent: Last Vital Signs Temp 35.8 C L 11/05/19 08:10 Pulse 80 11/05/19 08:10 Resp 24 H 11/05/19 08:10 BP 160/95 H 11/05/19 08:10 Pulse Ox 98 11/05/19 08:10 Weight - Most Recent: 101.877 kg I&O - Last 24 Hours: Intake & Output 11/04/19 11/05/19 11/05/19 22:59 06:59 14:59 Intake Total 2100 2357 Output Total 400 1100 500 Balance 1700 1257 -500 Lab Results Last 24 Hours: Laboratory Results - last 24 hr 11/04/19 11/05/19 11/05/19 Range/Units 11:15 04:10 04:10 WBC 6.1 (4.5-11.0) K/uL RBC 4.71 (4.30-5.90) M/uL Hgb 14.9 (12.0-15.0) g/dL Hct 44.5 (40.0-54.0) % MCV 95 (80-98) fL MCH 32 H (27-31) pg MCHC 34 (32-36) % Plt Count 87 L (150-400) K/uL Sodium 140 (140-148) mmol/L Potassium 3.9 (3.6-5.2) mmol/L Chloride 106 (100-108) mmol/L Carbon Dioxide 27 (21-32) mmol/L Anion Gap 7.1 (5.0-14.0) mmol/L BUN 8 D (7-18) mg/dL Creatinine 0.7 L (0.8-1.3) mg/dL Est Cr Clr Drug Dosing 107.61 mL/min Estimated GFR (MDRD) > 60 (>60) Glucose 111 H (74-106) mg/dL Calcium 8.3 L (8.5-10.1) mg/dL Total Bilirubin 1.1 H (0.2-1.0) mg/dL AST 73 H (15-37) U/L ALT 99 H (12-78) U/L Alkaline Phosphatase 106 (46-116) U/L Total Protein 5.8 L (6.4-8.2) g/dL Albumin 2.9 L (3.4-5.0) g/dL Globulin 2.9 (2.3-3.5) g/dL Albumin/Globulin Ratio 1.0 L (1.2-2.2) SARS Virus RNA (PCR) Negative (NEGATIVE) Nils Results Last 24 Hours: Microbiology 11/03/19 01:41 Gram Stain - Final Sputum - Expectorated Respiratory Culture - Preliminary NORMAL RESPIRATORY YVON 1 DAY Med Orders - Current: Current Medications Acetaminophen (Tylenol) 650 mg PO Q4H PRN PRN Reason: Pain (Mild 1-3)/fever Albuterol (Proventil Neb Soln) 2.5 mg NEB Q4H PRN PRN Reason: Shortness Of Breath/wheezing Last Admin: 11/03/19 23:42 Dose: 2.5 mg Documented by: Apixaban (Eliquis) 5 mg PO BID [facility] Last Admin: 11/04/19 21:23 Dose: 5 mg Documented by: Atorvastatin Calcium (Lipitor) 40 mg PO BEDTIME [facility] Last Admin: 11/04/19 21:24 Dose: 40 mg Documented by: Dimethicone/Zinc Oxide (Rash Relief-Zinc Oxide [place]) 0 gm TOP Q2H PRN PRN Reason: Rash Last Admin: 11/03/19 23:14 Dose: 1 spray Documented by: Doxycycline Hyclate (Vibramycin) 100 mg PO Q12H [facility] Last Admin: 11/04/19 21:25 Dose: 100 mg Documented by: Lactobacillus Rhamnosus (Culturelle) 1 cap PO BID [facility] Last Admin: 11/04/19 21:23 Dose: 1 cap Documented by: Lorazepam (Ativan) 0.5 mg IVPUSH Q4H PRN PRN Reason: Nausea/Vomiting Last Admin: 11/05/19 04:16 Dose: 0.5 mg Documented by: Magnesium Hydroxide (Milk Of Magnesia) 30 ml PO Q12H PRN PRN Reason: Constipation Nicotine (Habitrol) 21 mg TRDERM DAILY PRN PRN Reason: nicotine craving Last Admin: 11/04/19 21:44 Dose: 21 mg Documented by: Nystatin (Nystop) 0 gm TOP BID [facility] Last Admin: 11/04/19 21:24 Dose: 1 applic Documented by: Ondansetron HCl (Zofran) 4 mg IV Q6H PRN PRN Reason: Nausea/Vomiting Ondansetron HCl (Zofran Odt) 4 mg PO Q6H PRN PRN Reason: Nausea able to take PO Senna/Docusate Sodium (Senna Plus) 1 tab PO BID PRN PRN Reason: Constipation Sodium Chloride (Saline Flush) 10 ml FLUSH ASDIRECTED PRN PRN Reason: Keep Vein Open Tamsulosin HCl (Flomax) 0.4 mg PO PCBREAKFAST [facility] Discontinued Medications Enoxaparin Sodium (Lovenox) 40 mg SUBCUT Q24H [facility] Last Admin: 11/03/19 23:13 Dose: 40 mg Documented by: Potassium Chloride/Sodium Chloride (Normal Saline With 20 Meq Kcl) 1,000 mls @ 125 mls/hr IV ASDIRECTED [facility] Last Admin: 11/05/19 04:17 Dose: 125 mls/hr Documented by: Magnesium Sulfate 2 gm/ Premix 50 mls @ 25 mls/hr IV Q6H [facility] Stop: 11/04/19 17:29 Last Admin: 11/04/19 15:11 Dose: 25 mls/hr Documented by: Sodium Chloride (Normal Saline) 100 mls @ 3 mls/sec IV ASDIRECTED [facility] Stop: 11/04/19 10:31 Last Admin: 11/04/19 11:01 Dose: 3 mls/sec Documented by: Iopamidol (Isovue-300 (61%)) 150 ml IV ONETIME ONE Stop: 11/04/19 10:28 Last Admin: 11/04/19 11:01 Dose: 150 ml Documented by: Nystatin (Nystop) 1 gm TOP BID [facility] Last Admin: 11/03/19 23:13 Dose: 1 applic Documented by: Potassium Chloride (Klor-Con M20) 40 meq PO ONETIME ONE Stop: 11/04/19 09:16 Last Admin: 11/04/19 09:59 Dose: 40 meq Documented by: Ropinirole HCl (Requip) 0.5 mg PO BEDTIME [facility] Last Admin: 11/04/19 21:24 Dose: 0.5 mg Documented by: Sodium Chloride (Saline Flush) 10 ml FLUSH ONETIME ONE Stop: 11/04/19 10:28 Last Admin: 11/04/19 11:01 Dose: 10 ml Documented by: - Exam Quality Assessment: No: Supplemental Oxygen General: Alert, Oriented, Cooperative, No Acute Distress Lungs: Normal Respiratory Effort, Rhonchi (very mild upper resp) Cardiovascular: Regular Rate, Regular Rhythm GI/Abdominal Exam: Soft, No Distention, Tender (mild RUQ) Extremities: No Pedal Edema. No: Increased Warmth Skin: Warm, Dry Psy/Mental Status: Alert, Normal Affect Sepsis Event Note - Evaluation Sepsis Screening Result: No Definite Risk - Focused Exam Vital Signs: Vital Signs Temp Pulse Pulse Resp BP Pulse Ox 11/05/19 08:10 35.8 C L 80 24 H 160/95 H 98 11/05/19 03:00 35.1 C L 69 16 156/90 H 96 11/05/19 00:29 152/90 H 11/04/19 22:05 36.3 C 82 16 138/82 97 Date Exam was Performed: 11/05/19 Time Exam was Performed: 10:26 - Problem List & Annotations (1) Acute bronchitis SNOMED Code(s): 21170272 Code(s): J20.9 - ACUTE BRONCHITIS, UNSPECIFIED Status: Acute Current Visit: Yes Qualifiers: Bronchitis organism: unspecified organism Qualified Code(s): J20.9 - Acute bronchitis, unspecified (2) Weakness SNOMED Code(s): 12489247 Code(s): R53.1 - WEAKNESS Status: Acute Current Visit: Yes (3) Diarrhea SNOMED Code(s): 03881046 Code(s): R19.7 - DIARRHEA, UNSPECIFIED Status: Acute Current Visit: Yes Qualifiers: Diarrhea type: unspecified type Qualified Code(s): R19.7 - Diarrhea, unspecified (4) CVD (cerebrovascular disease) SNOMED Code(s): 78916058 Code(s): I67.9 - CEREBROVASCULAR DISEASE, UNSPECIFIED Status: Chronic Current Visit: Yes (5) Tobacco dependence SNOMED Code(s): 49995419 Code(s): F17.200 - NICOTINE DEPENDENCE, UNSPECIFIED, UNCOMPLICATED Status: Chronic Current Visit: Yes (6) Alcohol dependence SNOMED Code(s): 64132295 Code(s): F10.20 - ALCOHOL DEPENDENCE, UNCOMPLICATED Status: Chronic Current Visit: Yes Qualifiers: Substance use status: with intoxication Complication of substance-induced condition: uncomplicated Qualified Code(s): F10.220 - Alcohol dependence with intoxication, uncomplicated - Problem List Review Problem List Initiated/Reviewed/Updated: Yes - My Orders Last 24 Hours: My Active Orders 11/04/19 09:00 Lactobacillus Rhamnosus GG [Culturelle] 1 cap PO BID Nystatin [Nystop] 0 gm TOP BID 11/04/19 10:00 Doxycycline [Vibramycin] 100 mg PO Q12H 11/04/19 13:36 IS (RT) [RT Incentive Spirometry] [RC] Q1HWA 11/04/19 13:41 Admission Status [Patient Status] [ADT] Routine 11/04/19 21:00 Apixaban [Eliquis] 5 mg PO BID atorvaSTATin [Lipitor] 40 mg PO BEDTIME 11/05/19 09:00 Tamsulosin [Flomax] 0.4 mg PO PCBREAKFAST 11/05/19 09:32 Ambulate [RC] QID Convert IV to Saline Lock [OM.PC] Routine 11/05/19 09:33 LORazepam [Ativan] 0.5 mg PO Q6H PRN 11/05/19 21:00 Melatonin 9 mg PO BEDTIME - Plan Plan:: ASSESSMENT AND PLAN - Acute generalized weakness-probably multifactorial with some residual difficulties from his stroke and further deconditioning after hospital discharge as well as some contribution from his infection. -Saline lock IV -Ambulate 4 times daily -Physical therapy in the morning Acute bronchitis, suspected-cough improving. Strength improving. Respiratory culture with normal yvon. COVID19 testing was negative. -Doxycycline -Follow-up sputum culture Right upper quadrant pain and diarrhea-labs are looking better. Pain is improved but not resolved. CT scan was unremarkable. Recent CVA-minimal deficits. -Apixaban and atorvastatin Tobacco dependence in early remission-recently quit, hopes to continue cessation. Alcohol dependence-history of heavier drinking, has cut down to a sixpack of beer per day since his stroke. Still no evidence for alcohol withdrawal. Maintenance issues - - DVT prophylaxis -apixaban - GI prophylaxis -not indicated - Nutrition -regular Admission justification -patient was transitioned to inpatient status yesterday with the additional diagnosis of acute bronchitis on top of his weakness and all of his other problems. Disposition -home with home care versus subacute rehab Primary care physician -Franny Mercer M.D.
[2019-11-05] MEDS: Lactobacillus Rhamnosus GG (Probiotic) Cap PO SCH ×2 (09:51→21:30)
[2019-11-05] MEDS: Doxycycline 100 MG Cap PO SCH ×2 (09:52→21:33)
[2019-11-05] MEDS: Apixaban 5 MG Tab PO SCH ×2 (09:52→21:30)
[2019-11-05] MEDS: Tamsulosin 0.4 MG Cap.ER PO SCH (09:52)
[2019-11-05] MEDS: Nystatin Topical Powder 15 GM Bottle TOP SCH ×2 (09:52→21:33)
--- NOTE | 2019-11-05 20:33 | PROC ---
DATE OF PROCEDURE: 11/05/2019 SURGEON: Hal Frederick MD PROCEDURE: Removal of feeding tube. COMPLICATIONS: None. PLAQUE [employer]KER: None. RISKS: Risks, benefits, alternatives, limitations including, but not limited to infection, bleeding, and chronic fissures were explained to the patient who wished to proceed. PROCEDURE IN DETAIL: The patient was placed in supine position. This was a PEG pull type feeding tube. There were no stitches noted. This was grasped and pulled out. Dressings were applied. Instructions were given. The patient tolerated the procedure well. Hal Frederick MD /[id number]
[2019-11-05] MEDS: Melatonin 3 MG Tab PO SCH (21:31)
[2019-11-05] MEDS: atorvaSTATin 20 MG Tab PO SCH (21:31)
[2019-11-05] MEDS: LORazepam 0.5 MG Tab PO PRN (21:43)
--- NOTE | 2019-11-06 10:05 | PCM.PN ---
- General Info Date of Service: 11/06/19 Subjective Update: No acute events overnight. Patient did not sleep well because of nocturia. He was up every 1-2 hours urinating. No fevers. Cough is better. Strength is a little better but still weak. Appetite has been good. Vital signs have all been stable. No fevers. Functional Status: Reports: Pain Controlled, Tolerating Diet - Review of Systems General: Reports: Weakness. Denies: Fever Pulmonary: Reports: Cough - Patient Data Vitals - Most Recent: Last Vital Signs Temp 36.1 C 11/06/19 08:11 Pulse 80 11/06/19 08:11 Resp 16 11/06/19 08:11 BP 152/93 H 11/06/19 08:11 Pulse Ox 98 11/06/19 08:11 Weight - Most Recent: 103.328 kg I&O - Last 24 Hours: Intake & Output 11/05/19 11/06/19 11/06/19 22:59 06:59 14:59 Intake Total 865 Output Total 800 1550 Balance 65 -1550 Nils Results Last 24 Hours: Microbiology 11/03/19 01:41 Gram Stain - Final Sputum - Expectorated Respiratory Culture - Final NORMAL RESPIRATORY YVON 2 DAYS Med Orders - Current: Current Medications Acetaminophen (Tylenol) 650 mg PO Q4H PRN PRN Reason: Pain (Mild 1-3)/fever Albuterol (Proventil Neb Soln) 2.5 mg NEB Q4H PRN PRN Reason: Shortness Of Breath/wheezing Last Admin: 11/03/19 23:42 Dose: 2.5 mg Documented by: Apixaban (Eliquis) 5 mg PO BID [facility] Last Admin: 11/05/19 21:30 Dose: 5 mg Documented by: Atorvastatin Calcium (Lipitor) 40 mg PO BEDTIME [facility] Last Admin: 11/05/19 21:31 Dose: 40 mg Documented by: Dimethicone/Zinc Oxide (Rash Relief-Zinc Oxide [place]) 0 gm TOP Q2H PRN PRN Reason: Rash Last Admin: 11/03/19 23:14 Dose: 1 spray Documented by: Doxycycline Hyclate (Vibramycin) 100 mg PO Q12H [facility] Last Admin: 11/05/19 21:33 Dose: 100 mg Documented by: Lactobacillus Rhamnosus (Culturelle) 1 cap PO BID [facility] Last Admin: 11/05/19 21:30 Dose: 1 cap Documented by: Lorazepam (Ativan) 0.5 mg PO Q6H PRN PRN Reason: Anxiety Last Admin: 11/05/19 21:43 Dose: 0.5 mg Documented by: Magnesium Hydroxide (Milk Of Magnesia) 30 ml PO Q12H PRN PRN Reason: Constipation Melatonin (Melatonin) 9 mg PO BEDTIME [facility] Last Admin: 11/05/19 21:31 Dose: 9 mg Documented by: Nicotine (Habitrol) 21 mg TRDERM DAILY PRN PRN Reason: nicotine craving Last Admin: 11/04/19 21:44 Dose: 21 mg Documented by: Nystatin (Nystop) 0 gm TOP BID [facility] Last Admin: 11/05/19 21:33 Dose: 1 applic Documented by: Ondansetron HCl (Zofran) 4 mg IV Q6H PRN PRN Reason: Nausea/Vomiting Ondansetron HCl (Zofran Odt) 4 mg PO Q6H PRN PRN Reason: Nausea able to take PO Oxybutynin Chloride (Oxybutynin) 5 mg PO TID [facility] Senna/Docusate Sodium (Senna Plus) 1 tab PO BID PRN PRN Reason: Constipation Last Admin: 11/05/19 19:25 Dose: 1 tab Documented by: Sodium Chloride (Saline Flush) 10 ml FLUSH ASDIRECTED PRN PRN Reason: Keep Vein Open Tamsulosin HCl (Flomax) 0.4 mg PO BEDTIME [facility] Discontinued Medications Enoxaparin Sodium (Lovenox) 40 mg SUBCUT Q24H [facility] Last Admin: 11/03/19 23:13 Dose: 40 mg Documented by: Potassium Chloride/Sodium Chloride (Normal Saline With 20 Meq Kcl) 1,000 mls @ 125 mls/hr IV ASDIRECTED [facility] Last Admin: 11/05/19 04:17 Dose: 125 mls/hr Documented by: Magnesium Sulfate 2 gm/ Premix 50 mls @ 25 mls/hr IV Q6H [facility] Stop: 11/04/19 17:29 Last Admin: 11/04/19 15:11 Dose: 25 mls/hr Documented by: Sodium Chloride (Normal Saline) 100 mls @ 3 mls/sec IV ASDIRECTED [facility] Stop: 11/04/19 10:31 Last Admin: 11/04/19 11:01 Dose: 3 mls/sec Documented by: Iopamidol (Isovue-300 (61%)) 150 ml IV ONETIME ONE Stop: 11/04/19 10:28 Last Admin: 11/04/19 11:01 Dose: 150 ml Documented by: Lorazepam (Ativan) 0.5 mg IVPUSH Q4H PRN PRN Reason: Nausea/Vomiting Last Admin: 11/05/19 04:16 Dose: 0.5 mg Documented by: Nystatin (Nystop) 1 gm TOP BID [facility] Last Admin: 11/03/19 23:13 Dose: 1 applic Documented by: Potassium Chloride (Klor-Con M20) 40 meq PO ONETIME ONE Stop: 11/04/19 09:16 Last Admin: 11/04/19 09:59 Dose: 40 meq Documented by: Ropinirole HCl (Requip) 0.5 mg PO BEDTIME [facility] Last Admin: 11/04/19 21:24 Dose: 0.5 mg Documented by: Sodium Chloride (Saline Flush) 10 ml FLUSH ONETIME ONE Stop: 11/04/19 10:28 Last Admin: 11/04/19 11:01 Dose: 10 ml Documented by: Tamsulosin HCl (Flomax) 0.4 mg PO PCBREAKFAST [facility] Last Admin: 11/05/19 09:52 Dose: 0.4 mg Documented by: - Exam Quality Assessment: No: Supplemental Oxygen General: Alert, Oriented, Cooperative, No Acute Distress Lungs: Normal Respiratory Effort Cardiovascular: Regular Rate, Regular Rhythm, Tachycardia GI/Abdominal Exam: Soft, No Distention Extremities: No Pedal Edema Skin: Warm, Dry Wound/Incisions: No Drainage Psy/Mental Status: Alert, Normal Affect Sepsis Event Note - Evaluation Sepsis Screening Result: No Definite Risk - Focused Exam Vital Signs: Vital Signs Temp Pulse Resp BP Pulse Ox 11/06/19 08:11 36.1 C 80 16 152/93 H 98 11/06/19 02:00 35.3 C L 67 20 158/88 H 95 11/05/19 22:27 36.7 C 75 16 137/85 97 Date Exam was Performed: 11/06/19 Time Exam was Performed: 10:15 - Problem List & Annotations (1) Acute bronchitis SNOMED Code(s): 51761344 Code(s): J20.9 - ACUTE BRONCHITIS, UNSPECIFIED Status: Acute Current Visit: Yes Qualifiers: Bronchitis organism: unspecified organism Qualified Code(s): J20.9 - Acute bronchitis, unspecified (2) Weakness SNOMED Code(s): 94221510 Code(s): R53.1 - WEAKNESS Status: Acute Current Visit: Yes (3) Diarrhea SNOMED Code(s): 90193106 Code(s): R19.7 - DIARRHEA, UNSPECIFIED Status: Acute Current Visit: Yes Qualifiers: Diarrhea type: unspecified type Qualified Code(s): R19.7 - Diarrhea, unspecified (4) CVD (cerebrovascular disease) SNOMED Code(s): 32268073 Code(s): I67.9 - CEREBROVASCULAR DISEASE, UNSPECIFIED Status: Chronic Current Visit: Yes (5) Tobacco dependence SNOMED Code(s): 28708813 Code(s): F17.200 - NICOTINE DEPENDENCE, UNSPECIFIED, UNCOMPLICATED Status: Chronic Current Visit: Yes (6) Alcohol dependence SNOMED Code(s): 71404011 Code(s): F10.20 - ALCOHOL DEPENDENCE, UNCOMPLICATED Status: Chronic Current Visit: Yes Qualifiers: Substance use status: with intoxication Complication of substance-induced condition: uncomplicated Qualified Code(s): F10.220 - Alcohol dependence with intoxication, uncomplicated - Problem List Review Problem List Initiated/Reviewed/Updated: Yes - My Orders Last 24 Hours: My Active Orders 11/05/19 09:32 Ambulate [RC] QID Convert IV to Saline Lock [OM.PC] Routine 11/05/19 09:33 LORazepam [Ativan] 0.5 mg PO Q6H PRN 11/05/19 21:00 Melatonin 9 mg PO BEDTIME 11/06/19 09:15 Oxybutynin 5 mg PO TID 11/06/19 21:00 Tamsulosin [Flomax] 0.4 mg PO BEDTIME 11/07/19 05:00 CBC W/O DIFF,HEMOGRAM [HEME] Timed (1) COMPREHENSIVE METABOLIC PN,CMP [CHEM] Timed - Plan Plan:: ASSESSMENT AND PLAN - Acute generalized weakness-probably multifactorial with some residual difficulties from his stroke and further deconditioning after hospital discharge as well as some contribution from his infection. -Saline lock IV -Ambulate 4 times daily -Physical therapy again tomorrow morning Acute bronchitis, suspected-cough improving. Strength improving. Respiratory culture with normal yvon. COVID19 testing was negative. -Doxycycline x5 days (11/04-11/08) Right upper quadrant pain and diarrhea-labs are looking better. Pain and diarrhea have resolved. CT scan was unremarkable. Recent CVA-minimal deficits. -Apixaban and atorvastatin BPH with lower urinary tract symptoms-increased nocturia now that he is hydrated. -Continue tamsulosin (changed to bedtime dosing) -Restart oxybutynin Tobacco dependence in early remission-recently quit, hopes to continue cessation. Alcohol dependence-history of heavier drinking, has cut down to a sixpack of beer per day since his stroke. Still no evidence for alcohol withdrawal. Maintenance issues - - DVT prophylaxis -apixaban - GI prophylaxis -not indicated - Nutrition -regular Disposition - patient is interested in a subacute rehab stay. ([place] to home are [place] vs [place] vs [place] vs other[place] Primary care physician -Franny Mercer M.D.
[2019-11-06] MEDS: Oxybutynin 5 MG Tab PO SCH ×3 (10:21→21:39)
[2019-11-06] MEDS: Apixaban 5 MG Tab PO SCH ×2 (10:21→21:37)
[2019-11-06] MEDS: Lactobacillus Rhamnosus GG (Probiotic) Cap PO SCH ×2 (10:21→21:35)
[2019-11-06] MEDS: Doxycycline 100 MG Cap PO SCH ×2 (10:21→21:36)
[2019-11-06] MEDS: Nystatin Topical Powder 15 GM Bottle TOP SCH ×2 (10:21→21:38)
[2019-11-06] MEDS: Tamsulosin 0.4 MG Cap.ER PO SCH ×2 (10:33→21:37)
[2019-11-06] MEDS: Melatonin 3 MG Tab PO SCH (21:34)
[2019-11-06] MEDS: atorvaSTATin 20 MG Tab PO SCH (21:36)
[2019-11-06] MEDS: LORazepam 0.5 MG Tab PO PRN (21:39)
[2019-11-06] MEDS: Nicotine 21 MG/24 Hr Patch TRDERM PRN (21:40)
[2019-11-07] MEDS: LORazepam 0.5 MG Tab PO PRN ×2 (03:38→22:15)
[2019-11-07] MEDS: Apixaban 5 MG Tab PO SCH ×2 (08:53→19:59)
[2019-11-07] MEDS: Oxybutynin 5 MG Tab PO SCH ×3 (08:53→19:59)
[2019-11-07] MEDS: Lactobacillus Rhamnosus GG (Probiotic) Cap PO SCH ×2 (08:53→20:00)
[2019-11-07] MEDS: Nystatin Topical Powder 15 GM Bottle TOP SCH ×2 (08:54→20:00)
[2019-11-07] MEDS: Doxycycline 100 MG Cap PO SCH ×3 (09:59→21:12)
--- NOTE | 2019-11-07 10:33 | PCM.PN ---
- General Info Date of Service: 11/07/19 Subjective Update: Mr. Bird has been stable since yesterday, he did not sleep well last night because of his restless leg syndrome. He had taken Requip which seemed to help with the restless legs but did give him nightmares. He is willing to put up with a nightmare he needs to have his restless legs managed. He denies significant shortness of breath. He has been up walking with assistance of one and use of a walker. Functional Status: Reports: Tolerating Diet, Ambulating, Urinating - Review of Systems General: Reports: Weakness. Denies: Fever, Chills Pulmonary: Reports: No Symptoms Cardiovascular: Reports: No Symptoms Gastrointestinal: Reports: No Symptoms - Patient Data Vitals - Most Recent: Last Vital Signs Temp 96.1 F L 11/07/19 08:25 Pulse 91 11/07/19 08:37 Resp 16 11/07/19 08:25 BP 111/95 H 11/07/19 08:37 Pulse Ox 100 11/07/19 08:37 Weight - Most Recent: 228 lb I&O - Last 24 Hours: Intake & Output 11/06/19 11/07/19 11/07/19 22:59 06:59 14:59 Intake Total 340 400 Output Total 2200 275 Balance 340 -1800 -275 Lab Results Last 24 Hours: Laboratory Results - last 24 hr 11/07/19 11/07/19 Range/Units 05:14 05:14 WBC 5.8 (4.5-11.0) K/uL RBC 4.51 (4.30-5.90) M/uL Hgb 14.6 (12.0-15.0) g/dL Hct 43.3 (40.0-54.0) % MCV 96 (80-98) fL MCH 32 H (27-31) pg MCHC 34 (32-36) % Plt Count 101 L (150-400) K/uL Sodium 140 (140-148) mmol/L Potassium 4.2 (3.6-5.2) mmol/L Chloride 103 (100-108) mmol/L Carbon Dioxide 31 (21-32) mmol/L Anion Gap 6.4 (5.0-14.0) mmol/L BUN 16 D (7-18) mg/dL Creatinine 0.8 (0.8-1.3) mg/dL Est Cr Clr Drug Dosing 94.16 mL/min Estimated GFR (MDRD) > 60 (>60) Glucose 105 (74-106) mg/dL Calcium 8.7 (8.5-10.1) mg/dL Total Bilirubin 0.6 (0.2-1.0) mg/dL AST 187 H D (15-37) U/L ALT 187 H (12-78) U/L Alkaline Phosphatase 101 (46-116) U/L Total Protein 5.8 L (6.4-8.2) g/dL Albumin 2.8 L (3.4-5.0) g/dL Globulin 3.0 (2.3-3.5) g/dL Albumin/Globulin Ratio 0.9 L (1.2-2.2) Nils Results Last 24 Hours: Microbiology 11/03/19 01:41 Gram Stain - Final Sputum - Expectorated Respiratory Culture - Final NORMAL RESPIRATORY YVON 2 DAYS Med Orders - Current: Current Medications Acetaminophen (Tylenol) 650 mg PO Q4H PRN PRN Reason: Pain (Mild 1-3)/fever Last Admin: 11/07/19 01:57 Dose: 650 mg Documented by: Albuterol (Proventil Neb Soln) 2.5 mg NEB Q4H PRN PRN Reason: Shortness Of Breath/wheezing Last Admin: 11/03/19 23:42 Dose: 2.5 mg Documented by: Apixaban (Eliquis) 5 mg PO BID [facility] Last Admin: 11/07/19 08:53 Dose: 5 mg Documented by: Atorvastatin Calcium (Lipitor) 40 mg PO BEDTIME [facility] Last Admin: 11/06/19 21:36 Dose: 40 mg Documented by: Dimethicone/Zinc Oxide (Rash Relief-Zinc Oxide [place]) 0 gm TOP Q2H PRN PRN Reason: Rash Last Admin: 11/03/19 23:14 Dose: 1 spray Documented by: Doxycycline Hyclate (Vibramycin) 100 mg PO Q12H [facility] Last Admin: 11/07/19 09:59 Dose: 100 mg Documented by: Lactobacillus Rhamnosus (Culturelle) 1 cap PO BID [facility] Last Admin: 11/07/19 08:53 Dose: 1 cap Documented by: Lorazepam (Ativan) 0.5 mg PO Q6H PRN PRN Reason: Anxiety Last Admin: 11/07/19 03:38 Dose: 0.5 mg Documented by: Magnesium Hydroxide (Milk Of Magnesia) 30 ml PO Q12H PRN PRN Reason: Constipation Melatonin (Melatonin) 9 mg PO BEDTIME [facility] Last Admin: 11/06/19 21:34 Dose: 9 mg Documented by: Nicotine (Habitrol) 21 mg TRDERM DAILY PRN PRN Reason: nicotine craving Last Admin: 11/06/19 21:40 Dose: 21 mg Documented by: Nystatin (Nystop) 0 gm TOP BID [facility] Last Admin: 11/07/19 08:54 Dose: 1 applic Documented by: Ondansetron HCl (Zofran) 4 mg IV Q6H PRN PRN Reason: Nausea/Vomiting Ondansetron HCl (Zofran Odt) 4 mg PO Q6H PRN PRN Reason: Nausea able to take PO Oxybutynin Chloride (Oxybutynin) 5 mg PO TID [facility] Last Admin: 11/07/19 08:53 Dose: 5 mg Documented by: Ropinirole HCl (Requip) 0.5 mg PO BEDTIME [facility] Senna/Docusate Sodium (Senna Plus) 1 tab PO BID PRN PRN Reason: Constipation Last Admin: 11/05/19 19:25 Dose: 1 tab Documented by: Sodium Chloride (Saline Flush) 10 ml FLUSH ASDIRECTED PRN PRN Reason: Keep Vein Open Tamsulosin HCl (Flomax) 0.4 mg PO BEDTIME [facility] Last Admin: 11/06/19 21:37 Dose: 0.4 mg Documented by: Discontinued Medications Enoxaparin Sodium (Lovenox) 40 mg SUBCUT Q24H [facility] Last Admin: 11/03/19 23:13 Dose: 40 mg Documented by: Potassium Chloride/Sodium Chloride (Normal Saline With 20 Meq Kcl) 1,000 mls @ 125 mls/hr IV ASDIRECTED [facility] Last Admin: 11/05/19 04:17 Dose: 125 mls/hr Documented by: Magnesium Sulfate 2 gm/ Premix 50 mls @ 25 mls/hr IV Q6H [facility] Stop: 11/04/19 17:29 Last Admin: 11/04/19 15:11 Dose: 25 mls/hr Documented by: Sodium Chloride (Normal Saline) 100 mls @ 3 mls/sec IV ASDIRECTED [facility] Stop: 11/04/19 10:31 Last Admin: 11/04/19 11:01 Dose: 3 mls/sec Documented by: Iopamidol (Isovue-300 (61%)) 150 ml IV ONETIME ONE Stop: 11/04/19 10:28 Last Admin: 11/04/19 11:01 Dose: 150 ml Documented by: Lorazepam (Ativan) 0.5 mg IVPUSH Q4H PRN PRN Reason: Nausea/Vomiting Last Admin: 11/05/19 04:16 Dose: 0.5 mg Documented by: Nystatin (Nystop) 1 gm TOP BID [facility] Last Admin: 11/03/19 23:13 Dose: 1 applic Documented by: Potassium Chloride (Klor-Con M20) 40 meq PO ONETIME ONE Stop: 11/04/19 09:16 Last Admin: 11/04/19 09:59 Dose: 40 meq Documented by: Ropinirole HCl (Requip) 0.5 mg PO BEDTIME [facility] Last Admin: 11/04/19 21:24 Dose: 0.5 mg Documented by: Sodium Chloride (Saline Flush) 10 ml FLUSH ONETIME ONE Stop: 11/04/19 10:28 Last Admin: 11/04/19 11:01 Dose: 10 ml Documented by: Tamsulosin HCl (Flomax) 0.4 mg PO PCBREAKFAST [facility] Last Admin: 11/06/19 10:33 Dose: Not Given Documented by: - Exam General: Alert, Oriented, Cooperative, Mild Distress Lungs: Clear to Auscultation, Normal Respiratory Effort Cardiovascular: Regular Rate, Regular Rhythm, No Murmurs GI/Abdominal Exam: Soft, Non-Tender, No Organomegaly, No Distention Extremities: Non-Tender, No Pedal Edema Sepsis Event Note - Evaluation Sepsis Screening Result: No Definite Risk - Focused Exam Vital Signs: Vital Signs Temp Pulse Pulse Resp BP Pulse Ox 11/07/19 08:37 91 111/95 H 100 11/07/19 08:29 119/82 11/07/19 08:25 96.1 F L 70 16 138/84 100 11/07/19 02:00 96.7 F L 72 18 138/83 96 11/06/19 22:43 97.1 F 85 16 93/70 98 Date Exam was Performed: 11/07/19 Time Exam was Performed: 10:31 - Problem List Review Problem List Initiated/Reviewed/Updated: Yes - My Orders Last 24 Hours: My Active Orders 11/07/19 21:00 rOPINIRole [Requip] 0.5 mg PO BEDTIME - Plan Plan:: ASSESSMENT AND PLAN - Acute generalized weakness-probably multifactorial with some residual difficulties from his stroke and further deconditioning after hospital discharge as well as some contribution from his infection. -Saline lock IV -Ambulate 4 times daily -Physical therapy again tomorrow morning -Discharge to correction with restorative physical therapy and Occupational Therapy Acute bronchitis, suspected-cough improving. Strength improving. Respiratory culture with normal yvon. COVID19 testing was negative. -Doxycycline x5 days (11/04-11/08) Right upper quadrant pain and diarrhea-labs are looking better. Pain and diarrhea have resolved. CT scan was unremarkable. Recent CVA-minimal deficits. -Apixaban and atorvastatin BPH with lower urinary tract symptoms-increased nocturia now that he is hydrated. -Continue tamsulosin (changed to bedtime dosing) -Restart oxybutynin Tobacco dependence in early remission-recently quit, hopes to continue cessation. Restless leg syndrome -Requip 0.5 mg p.o. nightly Alcohol dependence-history of heavier drinking, has cut down to a sixpack of beer per day since his stroke. Still no evidence for alcohol withdrawal. Maintenance issues - - DVT prophylaxis -apixaban - GI prophylaxis -not indicated - Nutrition -regular Disposition - patient is interested in a subacute rehab stay. ([place] to home are [place] vs [place] vs [place] vs other?) Primary care physician -Franny Jones
[2019-11-07] MEDS: Tamsulosin 0.4 MG Cap.ER PO SCH (19:59)
[2019-11-07] MEDS: atorvaSTATin 20 MG Tab PO SCH (20:00)
[2019-11-07] MEDS ORDERED: rOPINIRole 0.5 MG Tab PO SCH (21:00)
[2019-11-07] MEDS: Melatonin 3 MG Tab PO SCH (22:15)
[2019-11-08 07:14] VITALS: BP 123/73; PULSE 78
[2019-11-08] MEDS: Nystatin Topical Powder 15 GM Bottle TOP SCH (08:02)
[2019-11-08] MEDS: Lactobacillus Rhamnosus GG (Probiotic) Cap PO SCH (08:03)
[2019-11-08] MEDS: Apixaban 5 MG Tab PO SCH (08:03)
[2019-11-08] MEDS: Oxybutynin 5 MG Tab PO SCH (08:03)
[2019-11-08] MEDS: Doxycycline 100 MG Cap PO SCH (09:09)
--- NOTE | 2019-11-08 10:41 | PCM.DCSUM1 ---
Discharge Summary - Hospital Course Brief History: Mr. Bird is a 59-year-old gentleman who was admitted through the emergency department with generalized weakness, abdominal pain, and diarrhea. - Discharge Data Discharge Date: 11/08/19 Discharge Disposition: Home, Self-Care 01 Condition: Fair - Referral to Home Health Primary Care Physician: PCP None - Discharge Diagnosis/Problem(s) (1) Alcohol abuse SNOMED Code(s): 39207377 ICD Code: F10.10 - ALCOHOL ABUSE, UNCOMPLICATED Status: Acute Current Visit: Yes (2) Weakness SNOMED Code(s): 42185872 ICD Code: R53.1 - WEAKNESS Status: Acute Current Visit: Yes (3) CVD (cerebrovascular disease) SNOMED Code(s): 07462324 ICD Code: I67.9 - CEREBROVASCULAR DISEASE, UNSPECIFIED Status: Chronic Current Visit: Yes (4) Diarrhea SNOMED Code(s): 46104648 ICD Code: R19.7 - DIARRHEA, UNSPECIFIED Status: Acute Current Visit: Yes Qualifiers: Diarrhea type: unspecified type Qualified Code(s): R19.7 - Diarrhea, unspecified (5) Acute bronchitis SNOMED Code(s): 94071173 ICD Code: J20.9 - ACUTE BRONCHITIS, UNSPECIFIED Status: Acute Current Visit: Yes Qualifiers: Bronchitis organism: unspecified organism Qualified Code(s): J20.9 - Acute bronchitis, unspecified - Patient Summary/Data Consults: Consultations 11/04/19 07:00 PT Evaluation and Treatment [CONS] Routine Please Evaluate and Treat. PT Reason for Consult: Strengthening This query below is only for informational purposes and is not editable. Hospital Course: Mr. Bird presented to the emergency room with weakness. He reports that his legs gave out on him this morning and he fell down. He had to crawl over to the chair and spent the day in the chair. He had several beers throughout the day. He reports that he has had urgent stool that he has been unable to control and it has been liquid. He reports that he has been having some urinary urgency and it has been passing in small quantities on its own. Appetite has been okay. He has been well enough to continue to smoke and drink alcohol. He has a mild cough with some sputum but does not feel short of breath. No chest pain or abdominal pain. No nausea. No fevers. He does report that he had a stroke just over a month ago but had been doing okay and had been independent at home. Things started suddenly today and he had been feeling well as of yesterday. No obvious sick contacts or travel. Work-up in the emergency room has been fairly unremarkable. The patient is quite weak. He is continuing to have loose and incontinent stools. No exciting labs other than a moderate CRP elevation. C. difficile and chest x-ray are pending. Repeat head CT unremarkable. On admission he was given IV fluids for hydration and started on antibiotic therapy with doxycycline for management of presumed bronchitis. The following day CT scan of the abdomen pelvis was obtained showing no acute abnormality. C. difficile was negative, abdominal pain and diarrhea resolved spontaneously. He had ongoing difficulty with urinary retention was started back on oxybutynin as well as Flomax, this resulted in good improvement in his ability to urinate. He was started back on his other usual medications. He was seen daily by physical therapy and overall strength had improved by the time of discharge. He has been strongly encouraged to stop all alcohol and nicotine use. Was recommended that he consider detention plate placement for restorative physical therapy and occupational therapy which he refused. He also refused home care services with home physical therapy and Occupational Therapy. Activity will be as tolerated and he will be on a low-sodium diet. Follow-up appointment will be scheduled with his primary care provider within 1 week. - Patient Instructions Diet: Low Sodium, No Alcoholic Beverages Activity: As Tolerated Other/Special Instructions: Please schedule follow-up appointment with primary care provider within 1 week. - Discharge Plan *PRESCRIPTION DRUG MONITORING PROGRAM REVIEWED*: Not Applicable *COPY OF PRESCRIPTION DRUG MONITORING REPORT IN PATIENT CLARISSA: Not Applicable Prescriptions/Med Rec: Lactobacillus Rhamnosus GG [Culturelle] 1 cap PO BID #60 cap Tamsulosin [Flomax] 0.4 mg PO BEDTIME #30 cap.er atorvaSTATin [Lipitor] 40 mg PO BEDTIME #30 tab Oxybutynin 5 mg PO TID #90 tablet rOPINIRole [Requip] 0.5 mg PO BEDTIME #30 tablet Doxycycline [Vibramycin] 100 mg PO Q12H #4 cap Home Medications: Home Meds Apixaban [Eliquis] 5 mg PO BID tablet 11/08/19 [Rx] Doxycycline [Vibramycin] 100 mg PO Q12H #4 cap 08/04/20 [Rx] Lactobacillus Rhamnosus GG [Culturelle] 1 cap PO BID #60 cap 11/08/19 [Rx] Oxybutynin 5 mg PO TID #90 tablet 11/08/19 [Rx] Tamsulosin [Flomax] 0.4 mg PO BEDTIME #30 cap.er 11/08/19 [Rx] atorvaSTATin [Lipitor] 40 mg PO BEDTIME #30 tab 11/08/19 [Rx] rOPINIRole [Requip] 0.5 mg PO BEDTIME #30 tablet 11/08/19 [Rx] Patient Handouts: Oxybutynin tablets, Ropinirole tablets Referrals: PCP,None [Primary Care Provider] - - Discharge Summary/Plan Comment DC Time >30 min.: No - Patient Data Vitals - Most Recent: Last Vital Signs Temp 95.5 F L 11/08/19 07:00 Pulse 78 11/08/19 07:00 Resp 16 11/08/19 07:00 BP 123/73 11/08/19 07:00 Pulse Ox 99 11/08/19 07:00 Weight - Most Recent: 228 lb I&O - Last 24 hours: Intake & Output 11/07/19 11/08/19 11/08/19 22:59 06:59 14:59 Intake Total 1900 240 360 Output Total 450 750 300 Balance 1450 -510 60 Med Orders - Current: Current Medications Acetaminophen (Tylenol) 650 mg PO Q4H PRN PRN Reason: Pain (Mild 1-3)/fever Last Admin: 11/07/19 01:57 Dose: 650 mg Documented by: Albuterol (Proventil Neb Soln) 2.5 mg NEB Q4H PRN PRN Reason: Shortness Of Breath/wheezing Last Admin: 11/03/19 23:42 Dose: 2.5 mg Documented by: Apixaban (Eliquis) 5 mg PO BID [facility] Last Admin: 11/08/19 08:03 Dose: 5 mg Documented by: Atorvastatin Calcium (Lipitor) 40 mg PO BEDTIME [facility] Last Admin: 11/07/19 20:00 Dose: 40 mg Documented by: Dimethicone/Zinc Oxide (Rash Relief-Zinc Oxide [place]) 0 gm TOP Q2H PRN PRN Reason: Rash Last Admin: 11/03/19 23:14 Dose: 1 spray Documented by: Doxycycline Hyclate (Vibramycin) 100 mg PO Q12H [facility] Last Admin: 11/08/19 09:09 Dose: 100 mg Documented by: Lactobacillus Rhamnosus (Culturelle) 1 cap PO BID [facility] Last Admin: 11/08/19 08:03 Dose: 1 cap Documented by: Lorazepam (Ativan) 0.5 mg PO Q6H PRN PRN Reason: Anxiety Last Admin: 11/07/19 22:15 Dose: 0.5 mg Documented by: Magnesium Hydroxide (Milk Of Magnesia) 30 ml PO Q12H PRN PRN Reason: Constipation Melatonin (Melatonin) 9 mg PO BEDTIME [facility] Last Admin: 11/07/19 22:15 Dose: 9 mg Documented by: Nicotine (Habitrol) 21 mg TRDERM DAILY PRN PRN Reason: nicotine craving Last Admin: 11/06/19 21:40 Dose: 21 mg Documented by: Nystatin (Nystop) 0 gm TOP BID [facility] Last Admin: 11/08/19 08:02 Dose: 1 applic Documented by: Ondansetron HCl (Zofran) 4 mg IV Q6H PRN PRN Reason: Nausea/Vomiting Ondansetron HCl (Zofran Odt) 4 mg PO Q6H PRN PRN Reason: Nausea able to take PO Oxybutynin Chloride (Oxybutynin) 5 mg PO TID [facility] Last Admin: 11/08/19 08:03 Dose: 5 mg Documented by: Ropinirole HCl (Requip) 0.5 mg PO BEDTIME [facility] Last Admin: 11/07/19 20:00 Dose: Not Given Documented by: Senna/Docusate Sodium (Senna Plus) 1 tab PO BID PRN PRN Reason: Constipation Last Admin: 11/05/19 19:25 Dose: 1 tab Documented by: Sodium Chloride (Saline Flush) 10 ml FLUSH ASDIRECTED PRN PRN Reason: Keep Vein Open Tamsulosin HCl (Flomax) 0.4 mg PO BEDTIME [facility] Last Admin: 11/07/19 19:59 Dose: 0.4 mg Documented by: Discontinued Medications Enoxaparin Sodium (Lovenox) 40 mg SUBCUT Q24H [facility] Last Admin: 11/03/19 23:13 Dose: 40 mg Documented by: Potassium Chloride/Sodium Chloride (Normal Saline With 20 Meq Kcl) 1,000 mls @ 125 mls/hr IV ASDIRECTED [facility] Last Admin: 11/05/19 04:17 Dose: 125 mls/hr Documented by: Magnesium Sulfate 2 gm/ Premix 50 mls @ 25 mls/hr IV Q6H [facility] Stop: 11/04/19 17:29 Last Admin: 11/04/19 15:11 Dose: 25 mls/hr Documented by: Sodium Chloride (Normal Saline) 100 mls @ 3 mls/sec IV ASDIRECTED [facility] Stop: 11/04/19 10:31 Last Admin: 11/04/19 11:01 Dose: 3 mls/sec Documented by: Iopamidol (Isovue-300 (61%)) 150 ml IV ONETIME ONE Stop: 11/04/19 10:28 Last Admin: 11/04/19 11:01 Dose: 150 ml Documented by: Lorazepam (Ativan) 0.5 mg IVPUSH Q4H PRN PRN Reason: Nausea/Vomiting Last Admin: 11/05/19 04:16 Dose: 0.5 mg Documented by: Nystatin (Nystop) 1 gm TOP BID [facility] Last Admin: 11/03/19 23:13 Dose: 1 applic Documented by: Potassium Chloride (Klor-Con M20) 40 meq PO ONETIME ONE Stop: 11/04/19 09:16 Last Admin: 11/04/19 09:59 Dose: 40 meq Documented by: Ropinirole HCl (Requip) 0.5 mg PO BEDTIME [facility] Last Admin: 11/04/19 21:24 Dose: 0.5 mg Documented by: Sodium Chloride (Saline Flush) 10 ml FLUSH ONETIME ONE Stop: 11/04/19 10:28 Last Admin: 11/04/19 11:01 Dose: 10 ml Documented by: Tamsulosin HCl (Flomax) 0.4 mg PO PCBREAKFAST [facility] Last Admin: 11/06/19 10:33 Dose: Not Given Documented by: - Exam Quality Assessment: Reports: DVT Prophylaxis General: Reports: Alert, Oriented, Cooperative, No Acute Distress Lungs: Reports: Clear to Auscultation, Normal Respiratory Effort Cardiovascular: Reports: Regular Rate, Regular Rhythm, No Murmurs GI/Abdominal Exam: Soft, Non-Tender, No Organomegaly, No Distention
== END 2019-11-08 13:15 | disposition home or self-care (01) | DRG 897 ==
LOC: JP.ED 17:15 → JP.MS 21:41 → OBSVTOIN 11-04 13:41
PROVIDERS: ADMIT Internal Medicine; ATTEND Hospitalist
DX: R53.1 Weakness (principal); Y90.9 Presence of alcohol in blood, level not specified; H54.7 Unspecified visual loss; I48.0 Paroxysmal atrial fibrillation; E78.00 Pure hypercholesterolemia, unspecified; F10.220 Alcohol dependence with intoxication, uncomplicated; I10 Essential (primary) hypertension; F10.20 Alcohol dependence, uncomplicated; G89.29 Other chronic pain; M54.9 Dorsalgia, unspecified; F32.9 Major depressive disorder, single episode, unspecified; F41.9 Anxiety disorder, unspecified; E66.9 Obesity, unspecified; F17.200 Nicotine dependence, unspecified, uncomplicated; Z88.8 Allergy status to other drugs, medicaments and biological substances; R19.7 Diarrhea, unspecified; I67.9 Cerebrovascular disease, unspecified; Z91.14 Patient's other noncompliance with medication regimen; Z20.828 Contact with and (suspected) exposure to other viral communicable diseases; Z93.1 Gastrostomy status; J20.9 Acute bronchitis, unspecified; W19.XXXA Unspecified fall, initial encounter; R39.15 Urgency of urination; R33.9 Retention of urine, unspecified; Z86.73 Personal history of transient ischemic attack (TIA), and cerebral infarction without residual deficits; Z79.01 Long term (current) use of anticoagulants; Z79.899 Other long term (current) drug therapy; R15.9 Full incontinence of feces; Z87.891 Personal history of nicotine dependence
CPT/HCPCS: 36415 ×2; 70450; 71045 ×2; 74177 ×2; 80048 ×2; 80076; 80307; 81001; 83735; 84484; 85025; 85027; 85610; 86140; 87070; 87205; 87493; 93005; 93010; 94640; 96361 ×2; 96365; 96366; 96372; 96375; 96376; 97110; 97162; 99284; 99285; A9270 ×6; G0378 ×2; J1650; J2060 ×2; J3475; J3480 ×2; J7050; Q9967; U0002; 80053; 96374; 97530-GP; 99222-AI; 99232; 99238

== ENCOUNTER 2020-05-01 05:13 | Emergency (ER) | payer MEDICARE ==
--- NOTE | 2020-05-01 05:56 | EDM.PDOCBH ---
<OfficerRashel - Last Filed: 05/01/20 05:53> ED HPI GENERAL MEDICAL PROBLEM - General Chief Complaint: Drug or Alcohol Abuse Stated Complaint: MEDICAL [facility] Time Seen by Provider: 05/01/20 05:50 Source of Information: Reports: Patient, Old Records, RN Notes Reviewed History Limitations: Reports: Intoxication - History of Present Illness INITIAL COMMENTS - FREE TEXT/NARRATIVE: 60-year-old gentleman presents emergency department today via EMS services requesting detoxification. He has a long history of alcohol abuse and dependence as well as medical compliance does have a history of CVA in the past. Usually drinks 1.75 hard liquor half the bottle per day last drink prior to calling the ambulance. He is pleasant and cooperative states that he needs detoxification before he can get help he has been trying to read his alcohol habit for the last decade - Related Data Allergies Allergy/AdvReac Type Severity Reaction Status Date / Time propofol Allergy Severe Cardiac Verified 05/01/20 05:16 Arrest Home Meds: Home Meds Apixaban [Eliquis] 5 mg PO BID tablet 11/08/19 [Rx] Oxybutynin 5 mg PO TID #90 tablet 11/08/19 [Rx] Tamsulosin [Flomax] 0.4 mg PO BEDTIME #30 cap.er 11/08/19 [Rx] atorvaSTATin [Lipitor] 40 mg PO BEDTIME #30 tab 11/08/19 [Rx] rOPINIRole [Requip] 0.5 mg PO TID 05/01/20 [History] Past Medical History HEENT History: Reports: Impaired Vision Cardiovascular History: Reports: Afib (Paroxysmal), High Cholesterol, Hypertension Gastrointestinal History: Reports: Other (See Below) Other Gastrointestinal History: feeding tube in place placed after CVA with difficulty swallowing however no longer uses it Musculoskeletal History: Reports: Back Pain, Chronic, Fracture Neurological History: Reports: CVA (Right vertebral artery), Other (See Below) (Obstructive sleep apnea) Psychiatric History: Reports: Addiction, Anxiety, Depression Endocrine/Metabolic History: Reports: Obesity/BMI 30+ - Infectious Disease History Infectious Disease History: Reports: Chicken Pox - Past Surgical History Neurological Surgical History: Reports: Laminectomy, Spinal Fusion Social & Family History - Family History Family Medical History: No Pertinent Family History - Tobacco Use Tobacco Use Status *Q: Current Every Day Tobacco User Years of Tobacco use: 50 Packs/Tins Daily: 1 - Caffeine Use Caffeine Use: Reports: Coffee - Alcohol Use Days Per Week of Alcohol Use: 7 Number of Drinks Per Day: 8 Total Drinks Per Week: 56 Date of Last Drink: 05/01/20 - Recreational Drug Use Recreational Drug Use: No ED ROS GENERAL - Review of Systems Review Of Systems: See Below Constitutional: Reports: No Symptoms HEENT: Reports: No Symptoms Respiratory: Reports: No Symptoms Cardiovascular: Reports: No Symptoms GI/Abdominal: Reports: Stool Incontinence (With alcohol abuse) : Reports: No Symptoms ED EXAM, BEHAVIORAL HEALTH - Physical Exam Exam: See Below Exam Limited By: Intoxication General Appearance: Alert, No Apparent Distress Respiratory/Chest: No Respiratory Distress, Lungs Clear, Normal Breath Sounds, No Accessory Muscle Use, Chest Non-Tender Cardiovascular: No Murmur, Irregularly Irregular GI/Abdominal: Soft, Non-Tender Departure - Departure Disposition: Home, Self-Care 01 Clinical Impression: Alcohol abuse - Discharge Information Instructions: Alcohol Use Disorder Referrals: PCP,None [Primary Care Provider] - Forms: ED Department Discharge Care Plan Goals: Avoid any further alcohol, sober up and stay hydrated and get your strength back. Call your regular doctor or recheck at [facility] if not improving satisfactorily. Sepsis Event Note (ED) - Evaluation Sepsis Screening Result: No Definite Risk <Royce Bland - Last Filed: 05/01/20 17:07> COURSE, BEHAVIORAL HEALTH COMP - Course Vital Signs: Last Vital Signs Temp 96.3 F L 05/01/20 15:17 Pulse 91 05/01/20 15:17 Resp 16 05/01/20 15:17 BP 147/75 H 05/01/20 15:17 Pulse Ox 95 05/01/20 15:17 Orders, Labs, Meds: Active Orders 24 hr Category Date Time Status DME for Discharge [COMM] Stat Oth 05/01/20 14:51 Ordered Laboratory Tests 05/01/20 05/01/20 05/01/20 Range/Units 06:02 06:02 06:02 WBC 4.8 (4.5-11.0) K/uL RBC 5.10 (4.30-5.90) M/uL Hgb 16.7 H D (12.0-15.0) g/dL Hct 48.7 (40.0-54.0) % MCV 96 (80-98) fL MCH 33 H (27-31) pg MCHC 34 (32-36) % Plt Count 88 L (150-400) K/uL Neut % (Auto) 49 (36-66) % Lymph % (Auto) 34 (24-44) % [place] % (Auto) 14 H (2-6) % Eos % (Auto) 2 (2-4) % Baso % (Auto) 1 (0-1) % Sodium 146 (140-148) mmol/L Potassium 3.9 (3.6-5.2) mmol/L Chloride 104 (100-108) mmol/L Carbon Dioxide 28 (21-32) mmol/L Anion Gap 14.4 H (5.0-14.0) mmol/L BUN 21 H (7-18) mg/dL Creatinine 0.8 (0.8-1.3) mg/dL Est Cr Clr Drug Dosing 92.63 mL/min Estimated GFR (MDRD) > 60 (>60) Glucose 85 (74-106) mg/dL Calcium 8.8 (8.5-10.1) mg/dL Total Bilirubin 1.1 H D (0.2-1.0) mg/dL AST 165 H (15-37) U/L ALT 124 H (12-78) U/L Alkaline Phosphatase 83 (46-116) U/L Total Protein 6.6 (6.4-8.2) g/dL Albumin 3.5 (3.4-5.0) g/dL Globulin 3.1 (2.3-3.5) g/dL Albumin/Globulin Ratio 1.1 L (1.2-2.2) Urine Opiates Screen (NEGATIVE) Ur Oxycodone Screen (NEGATIVE) Urine Methadone Screen (NEGATIVE) Ur Propoxyphene Screen (NEGATIVE) Ur Barbiturates Screen (NEGATIVE) Ur Tricyclics Screen (NEGATIVE) Ur Phencyclidine Scrn (NEGATIVE) Ur Amphetamine Screen (NEGATIVE) U Methamphetamines Scrn (NEGATIVE) Urine MDMA Screen (NEGATIVE) U Benzodiazepines Scrn (NEGATIVE) U Cocaine Metab Screen (NEGATIVE) U Marijuana (THC) Screen (NEGATIVE) Ethyl Alcohol 221 mg/dL 05/01/20 Range/Units 07:35 WBC (4.5-11.0) K/uL RBC (4.30-5.90) M/uL Hgb (12.0-15.0) g/dL Hct (40.0-54.0) % MCV (80-98) fL MCH (27-31) pg MCHC (32-36) % Plt Count (150-400) K/uL Neut % (Auto) (36-66) % Lymph % (Auto) (24-44) % [place] % (Auto) (2-6) % Eos % (Auto) (2-4) % Baso % (Auto) (0-1) % Sodium (140-148) mmol/L Potassium (3.6-5.2) mmol/L Chloride (100-108) mmol/L Carbon Dioxide (21-32) mmol/L Anion Gap (5.0-14.0) mmol/L BUN (7-18) mg/dL Creatinine (0.8-1.3) mg/dL Est Cr Clr Drug Dosing mL/min Estimated GFR (MDRD) (>60) Glucose (74-106) mg/dL Calcium (8.5-10.1) mg/dL Total Bilirubin (0.2-1.0) mg/dL AST (15-37) U/L ALT (12-78) U/L Alkaline Phosphatase (46-116) U/L Total Protein (6.4-8.2) g/dL Albumin (3.4-5.0) g/dL Globulin (2.3-3.5) g/dL Albumin/Globulin Ratio (1.2-2.2) Urine Opiates Screen Negative (NEGATIVE) Ur Oxycodone Screen Negative (NEGATIVE) Urine Methadone Screen Negative (NEGATIVE) Ur Propoxyphene Screen Negative (NEGATIVE) Ur Barbiturates Screen Negative (NEGATIVE) Ur Tricyclics Screen Negative (NEGATIVE) Ur Phencyclidine Scrn Negative (NEGATIVE) Ur Amphetamine Screen Negative (NEGATIVE) U Methamphetamines Scrn Negative (NEGATIVE) Urine MDMA Screen Negative (NEGATIVE) U Benzodiazepines Scrn Negative (NEGATIVE) U Cocaine Metab Screen Negative (NEGATIVE) U Marijuana (THC) Screen Negative (NEGATIVE) Ethyl Alcohol mg/dL Re-Assessment/Re-Exam: Extensive efforts were made to find this patient room for detox but he was refused everywhere that had beds. [facility] not [facility] him because he is uncooperative, defecates himself and is disruptive to the other patients. His vitals remained stable all day, so a Medivan ride was arranged for him to go home. He was provided a walker to help with ambulation. If it does not feel he is tolerating being at home, he can call the ambulance and going to [facility] where they may be able to hospitalize him to prepare him for intermediate placement. When minivan arrived the patient acted like he could not stand very well, was shaky and weak which is very different than just a few hours ago when he ambulated much better when he was trying out the walker. He is very manipulative. Departure - Departure Time of Disposition: 16:21 Sepsis Event Note (ED) - Focused Exam Vital Signs: Vital Signs Temp Pulse Resp BP Pulse Ox 05/01/20 15:17 96.3 F L 91 16 147/75 H 95 05/01/20 08:18 96 F L 74 14 128/67 94 L 05/01/20 05:30 96.9 F 70 19 161/89 H 93 L 05/01/20 05:29 96.9 F 70 19 161/89 H 93 L - My Orders Last 24 Hours: My Active Orders 05/01/20 14:51 DME for Discharge [COMM] Stat - Assessment/Plan Last 24 Hours: My Active Orders 05/01/20 14:51 DME for Discharge [COMM] Stat
[2020-05-01 15:18] VITALS: BP 147/75; PULSE 91
== END 2020-05-01 16:51 | disposition home or self-care (01) ==
LOC: JP.ED 05:13
DX: F10.10 Alcohol abuse, uncomplicated (principal); I48.0 Paroxysmal atrial fibrillation; I10 Essential (primary) hypertension; E78.00 Pure hypercholesterolemia, unspecified; E66.9 Obesity, unspecified; Z68.38 Body mass index [BMI] 38.0-38.9, adult; Y90.7 Blood alcohol level of 200-239 mg/100 ml; Z72.0 Tobacco use; Z88.4 Allergy status to anesthetic agent; Z79.899 Other long term (current) drug therapy; Z79.01 Long term (current) use of anticoagulants
CPT/HCPCS: 36415; 80053; 80305-QW; 80307; 85025; 99283; 99284